=== PATIENT | female | born 1990 | race Caucasian/White ===

== ENCOUNTER → 2022-09-05 08:23 | Outpatient (BNVA) | payer OTHER, SELFPAY | PROVIDERS: Visit Provider Physician Assistant Surgical ==

== ENCOUNTER 2022-10-04 14:56 | Outpatient (AMB) | payer OTHER, SELFPAY ==
--- NOTE | 2022-10-04 15:04 | A.OFFVIS_ITS ---
Intake VS Expanded 10/04/22 15:11 Height 5 ft 4 in Weight 238 lb 12.8 oz BMI 41.0 BP 129/74 Blood Pressure Location Rt brachial Blood Pressure Position Sitting Pulse 80 Pulse Source Pulse Oximeter Temp 98.1 F Temperature Source Temporal Artery Scan Pulse Oximetry 96 Oxygen Delivery Method Room Air Body Fat 103.2 Body Fat Percentage 43.2 Free Fat Mass 135.6 Muscle Mass 128.8 Visceral Mass 11.0 Water Mass 97.4 BMR 1,920 Intake Visit Reasons: (OV) [employer] SWL BMI 41.4 Public Relations Sales Marketing Required: No Allergies Seasonal Allergies Allergy (Mild, Verified 10/04/22 15:09) Sneezing Medication List - Last Reconciled 10/04/22 by YAO Foote levocetirizine (Xyzal) 5 mg PO DAILY HPI HPI Comments History of Present Illness Details Pt is here to start the [facility] Weight Management surgical weight loss program. She heard about our program from her sister. Her goal is to lose weight and achieve a healthy lifestyle. She reports first being concerned about her weight for about 12 years, highest weight to date was 265. Current weight is 238.8 with a BMI of 41. She has tried multiple methods of weight loss including fad diets and diet pills without permanent results. She lives with her , son and sister. 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 She wakes at:?530 am, and goes to bed at?1030 pm. Dinner is at 5 pm. Breakfast: stateless muffin w butter or PB, OJ, kate AM snack: skip or popcorn or chips/salsa Lunch: tuna packet, avocado, tomato, cucumber PM snack: DD bagel w cream cheese, grilled cheese w rye/lin/tomato Dinner: burrito bowl, pizza, restaurant ([facility] [employer] , 99) After dinner: twizzlers, icey pops Other snacks: candy, chocolate Liquids: less than 16 oz water daily, OJ/cran/apple juices 32 oz daily, 32 oz coke/pepsi daily Alcohol/marijuana/tobacco intake: rare etoh, no cannabis, no tobacco Exercise: walking QOD 10-15 min, has gym membership to [facility]. GERD score: 0 TERESA score: 4 ESS score: 3 QOL score: 100 PFS Surgical History Hx of section Hx of wisdom tooth extraction Family History Mother High cholesterol Father Hypertension High cholesterol Sister No problems noted. Sister Hypertension High cholesterol Sister No problems noted. Son No problems noted. Social History Alcohol intake: current Alcohol intake frequency: holidays/special occasions only Patient Tobacco Use Status: Never used Tobacco Review of Systems Const All systems reviewed & are unremarkable except as noted in HPI and below Physical Exam Vital Signs: Last Vital Signs Temp 98.1 F 10/04/22 15:11 Pulse 80 10/04/22 15:11 BP 129/74 10/04/22 15:11 Pulse Ox 96 10/04/22 15:11 Oxygen Delivery Method Room Air 10/04/22 15:11 BMI result Body Mass Index 41.0 Const General: cooperative, healthy appearing and no acute distress Orientation/consciousness: patient oriented x3 HEENT Head: Yes normal to inspection Ears: hearing grossly normal bilaterally General nose exam: Normal external nose present Face and sinus: Yes normal facial exam Eyes General: appearance normal, both eyes and all related structures Resp Effort & Inspection: normal respiratory effort Auscultation: clear to auscultation bilaterally Cardio Rate: regular rate Rhythm: regular rhythm Heart sounds: S1 normal heart sound present and S2 normal heart sound present GI Inspection: Yes normal to inspection, No distended and Yes obesity Palpation (GI): Soft to palpation, nontender and no guarding Auscultation: normal bowel sounds Skin General skin exam: no rashes or lesions noted Neuro General: patient oriented x3 Extrem General: No edema Psych Appearance: grossly normal Mental Status: mental status grossly normal Speech and movement: Normal speech and movement present Affect: normal affect Attitude: cooperative Assessment & Plan Assessment & Plan (1) Morbid obesity: Code(s): E66.01 - Morbid (severe) obesity due to excess calories Plan: This is a?31 yo female who will start our SWL program to prepare for bariatric surgery.? Blood work, h pylori , CXR, ECG, Abd US and UGI have been ordered. She is being scheduled for RD and BH initial consultations. She will start SWL classes and watch the first three videos before her next appointment. ? Adequate sleep of 7-8 hours per night discussed, awakening at 530 am and going to bed around 1030 pm ? You stated you already purchased a body composition scale so be sure to check weight weekly. The best time to do this is first thing in the morning after going to the bathroom. 1. Nutritional counseling: Be sure to careful read the number of scoops per shake Start with 3 Pure Protein shakes ([employer], [employer], [employer]), (1/2 scoop in 8 oz low fat unsweetened almond milk or water) First shake at 630am-830am, Second shake at 1030am-1230pm 1 protein bar ([employer] Perfect bars at [employer], [employer], or [employer]) at 2pm-4pm. Dinner at 5pm (9 forks of protein and 9 forks of salad/vegetables). Meal to include lean meat (beef, fish, pork, turkey, chicken), cooked vegetables or a salad with olive oil and/or fruits (berries, pears, apples, kiwi). Avoid salt, breads, potatoes, rice, pasta, desserts. Another shake with 1/2 scoop in 8 oz unsweetened almond milk at 730pm-930pm. Try to drink 64 oz of water daily and avoid soda and juices. ?2. Each shake would be drunk slowly, like coffee in a period of 2 hours. ?3. Cut each bar in 4 pieces and eat each piece in 30 min ?to make each bar last 2 hours. ?4. I emphasized the importance of measuring accurately the food portion and measure it carefully when serving the food on the plate ?5. The meal portions include 9 full-size forks of meat and 9 full-size forks of salad. You always eat the meat portion but you can replace up to half of the forks of salad/vegetables with rice, potatoes or pasta, or a fruit ?if you like. The less you do it the better weight loss will be. ?6. One full-size fork is what can be scooped on the fork without falling aside and not what can be bit with the fork. Use regular forks like those you find in a typical restaurant. ?7.? Please send me weight measurements as soon as possible and then once a week. Always include your diet and exercise plan. Alternatively come weekly at the office for weight checks and send me the measurements. ?8. Exercise counseling: Begin by watching a stretching for beginners video. Start slowly and begin to stretch your muscles. You should do this before and after each exercise session to prevent injury. Please go to [facility] gym near your home. Ask the manager float or one of the trainers how to use the machines if you are unfamiliar with them. Start elliptical with a resistance of 2. Increase resistance by 1 every 3 min to your most comfortable resistance with a max resistance of 8. Reduce the resistance by 1 every 3 minutes back down to 2 and repeat cycles for 300 calories. Alternatively, start treadmill with a speed of 3.0 and incline of 0, increasing incline by 1 every 3 minutes to the highest comfortable level (max 6 for now) then decrease in the same fashion. Repeat process to a goal of 300 calories. Goal of 2000 calories burned or more weekly. You may also consider use of the stationary bike. The easiest would be to chose the fat-burn or interval training program on the machine and do this until you reach the 300 calorie goal. Alternatively, you can manually adjust the resistance in a similar fashion as mentioned above, (resistance of 2-8 with a goal speed of 12 mph). Tracking calories is essential. 9. Alternatively start walking outside daily, tracking calories with a goal of 300 calories per day, daily. You can download the lianna [employer] which can track your time, distance and calories while walking outside. You press start in the lianna when you start and then stop when you are finished. 10.? It is important to avoid and for at least 18 months postoperatively and it has been discussed at the information session 11. Please get labs, EKG and chest X-Ray within 1 week. 12. Discussed and answered all questions regarding?obtained consent to participate in the [place] [facility]?Registry. 13. Please follow the diet plan exactly, without any change. If you do not like something about the plan or you feel hungry, you need to communicate with me so I can help you revise the plan. You should not change the plan yourself. Text me at [phone] 14. Goal is to lose at least 12 pounds in the first month 15. Goal is to lose 10% of your weight before surgery, which is about 24 lbs. Ultimate weight goal: 214 lbs before surgery Patient is morbidly obese and is not considered stable at this time.?I spent a total of 70 minutes reviewing/updating records, examining the patient and counseling the patient on weight management as detailed above. Orders: Orders Vitamin B12 and Folate Today E66.01 - Morbid (severe) obesity due to excess calories Comprehensive Met. Panel Today E66.01 - Morbid (severe) obesity due to excess calories C Reactive Protein Today E66.01 - Morbid (severe) obesity due to excess calories Ferritin Today E66.01 - Morbid (severe) obesity due to excess calories Hemoglobin A1c Today E66.01 - Morbid (severe) obesity due to excess calories Insulin Today E66.01 - Morbid (severe) obesity due to excess calories IRON PROFILE Today E66.01 - Morbid (severe) obesity due to excess calories Lipid Panel Today E66.01 - Morbid (severe) obesity due to excess calories PTHI Today E66.01 - Morbid (severe) obesity due to excess calories TSH reflex Free T4 Today E66.01 - Morbid (severe) obesity due to excess calories Vitamin A Today E66.01 - Morbid (severe) obesity due to excess calories Vitamin B1 Today E66.01 - Morbid (severe) obesity due to excess calories Vitamin D 25-OH Total Today E66.01 - Morbid (severe) obesity due to excess calories Zinc Today E66.01 - Morbid (severe) obesity due to excess calories ECG 12 lead EKG Today E66.01 - Morbid (severe) obesity due to excess calories FL upper GI w air Today E66.01 - Morbid (severe) obesity due to excess calories Complete Blood Count Auto Diff Today E66.01 - Morbid (severe) obesity due to excess calories H Pylori Breath Test Today E66.01 - Morbid (severe) obesity due to excess calories US abdomen comp w elastography Today E66.01 - Morbid (severe) obesity due to excess calories XR chest 2V Today E66.01 - Morbid (severe) obesity due to excess calories Referrals Behavioral Health Referral E66.01 - Morbid (severe) obesity due to excess calories Nutrition/Dietitian Referral E66.01 - Morbid (severe) obesity due to excess calories Coding Level of Care Code New Pt Level 5 (39907) Diagnoses Morbid obesity E66.01 Time Spent (min) 70
[2022-10-04 15:11] VITALS: BP 129/74; PULSE 80; TEMP 36.7; O2SAT 96; BMI 41.0
== END 2022-10-04 16:54 | disposition home or self-care (01) ==
PROVIDERS: Visit Provider Physician Assistant Surgical
DX: E66.01 Morbid (severe) obesity due to excess calories (principal); Z68.41 Body mass index [BMI] 40.0-44.9, adult
CPT/HCPCS: 99205

== ENCOUNTER → 2022-10-04 14:56 | Outpatient (BNVA) | payer OTHER, SELFPAY | PROVIDERS: Visit Provider Physician Assistant Surgical ==

== ENCOUNTER 2022-10-08 07:38 | Outpatient (REF) | payer OTHER, SELFPAY ==
--- NOTE | ~2022-10-08 | XR_ITS ---
EXAMINATION: XR CHEST CLINICAL INFORMATION: Reason for Exam E66.01 - Morbid (severe) obesity due to excess calories COMPARISON: None TECHNIQUE: 2 views of the chest FINDINGS: Lines and tubes: None. Clear lungs. No pleural effusion. No pneumothorax. Normal cardiomediastinal silhouette. XR/XR chest 2V IMPRESSION: * Clear lungs.
--- NOTE | 2022-10-08 07:47 | ECG_ITS ---
Test Reason : E66.01 Blood Pressure : / mmHG Vent. Rate : 064 BPM Atrial Rate : 064 BPM P-R Int : 116 ms QRS Dur : 086 ms QT Int : 412 ms P-R-T Axes : 044 073 032 degrees QTc Int : 425 ms Normal sinus rhythm Normal ECG No previous ECGs available Referred By: Kevin Parker Electronically Signed By:ARNIE ELISE MD
[2022-10-08 08:07] LABS: MANUAL DIFF FLAG NO
[2022-10-08 08:25] LABS: Basophils Percent Auto 0.4 % (0-2); Eosinophils Absolute Auto 0.4 X10*3/uL (0.0-0.4); Eosinophils Percent Auto 4.5 % (0-4); Hematocrit 42.2 % (37.0-47.0); Hemoglobin 14.3 g/dl (12.0-16.0); Imm Gran Abs Auto 0.04 X10*3/uL (0.00-0.03); Imm Gran Pct Auto 0.5 % (0.0-0.4); Lymphocytes Absolute Auto 2.2 X10*3/uL (1.2-4.9); Lymphocytes Percent Auto 27.1 % (20-40); Mean Corpuscular HGB Conc 33.9 g/dl (31.0-35.0); Mean Corpuscular Hemoglobin 27.6 pg (27.0-33.0); Mean Corpuscular Volume 81.3 fL (80.0-98.0); Mean Platelet Volume 9.9 fL (9.4-12.3); Monocytes Absolute Auto 0.5 X10*3/uL (0.1-1.2); Monocytes Percent Auto 6.6 % (2-11); Neutrophils Percent Auto 60.9 % (45-73); Platelet Count 252 X10*3/uL (160-400); Red Blood Count 5.19 X10*6/uL (4.20-5.50); Red Cell Distribution Width 12.1 % (11.0-16.0); White Blood Count 8.2 X10*3/uL (4.8-10.8)
[2022-10-08 08:32] LABS: Estimated Average Glucose 88 mg/dL; Hemoglobin A1c % 4.7 %
[2022-10-08 09:09] LABS: Alanine Aminotransferase 25 U/L (0-31); Albumin Level 4.8 g/dL (3.5-5.0); Alkaline Phosphatase 99 U/L (39-117); Anion Gap 13 (12-20); Aspartate Amino Transferase 23 U/L (5-31); Bilirubin Total 0.8 mg/dL (0.0-1.0); Blood Urea Nitrogen 17 mg/dL (9-16); C Reactive Protein 0.85 mg/dL (< or = 0.50); Calcium 9.7 mg/dL (8.4-10.2); Carbon Dioxide 24 mmol/L (22-29); Chloride 107 mmol/L (96-108); Cholesterol 173 mg/dL; Estimated Glomerular Filt Rate > 60; Glucose Random 82 mg/dL (60-115); HDL Cholesterol 35 mg/dL; Iron 74 mcg/dL (30-160); LDL Cholesterol Calculated 119 mg/dl; Percent Iron Saturation 22 % (15-50); Potassium 3.7 mmol/L (3.3-5.1); Sodium 140 mmol/L (135-145); Total Iron Binding Capacity 330 mcg/dL (228-428); Total Protein 8.1 g/dL (6.5-8.0); Triglycerides 98 mg/dL; Unsaturated Iron Binding 256 ug/dL
[2022-10-08 09:13] LABS: Ferritin 120 ng/mL (10-122); Insulin 8 uU/mL (2-29); TSH reflex Free T4 1.17 uIU/mL (0.32-4.0); Vitamin D 25-OH Total 18.9 ng/mL (>30)
[2022-10-08 09:28] LABS: Folate 15.1 ng/mL (> or = 4.0); Vitamin B12 256 pg/mL (200-900)
[2022-10-10 18:58] LABS: Calcium (PTHI) 9.7 mg/dL (8.6-10.2); PTHI 63 pg/mL (16-77)
[2022-10-11 23:14] LABS: Zinc 83 mcg/dL (60-130)
[2022-10-12 03:43] LABS: Vitamin A 37 mcg/dL (38-98)
[2022-10-15 12:08] LABS: Vitamin B1 8 nmol/L (8-30)
== END 2022-10-08 07:39 | disposition home or self-care (01) ==
LOC: HO.XRAY 07:38
PROVIDERS: PCP Internal Medicine; Visit Provider Physician Assistant Surgical
DX: E66.01 Morbid (severe) obesity due to excess calories (principal)
CPT/HCPCS: 36415; 71046; 80053; 80061; 82306; 82607; 82728; 82746; 83036; 83525; 83540; 83970; 84425; 84443; 84590; 84630; 85025; 86140; 93005

== ENCOUNTER → 2022-10-08 07:47 | Outpatient (BNV) | payer OTHER, SELFPAY | PROVIDERS: PCP Internal Medicine; Visit Provider Internal Medicine Cardiovascular Disease | DX: E66.01 Morbid (severe) obesity due to excess calories (principal) | CPT/HCPCS: 93010 ==

== ENCOUNTER 2022-10-22 09:49 | Outpatient (AMB) | payer OTHER, SELFPAY ==
[2022-10-22 10:58] VITALS: BMI 39.3
--- NOTE | 2022-10-22 10:58 | MHC.AMNUTRGE ---
Intake VS Expanded 10/22/22 10:58 Height 5 ft 4 in Weight 229 lb BMI 39.3 Intake Visit Reasons: (OV) Initial Nutrition SWL Allergies Seasonal Allergies Allergy (Mild, Verified 10/04/22 15:09) Sneezing HPI Nutrition Presentation Reason for consult elevated BMI Diet Assmnt Details 2 shakes (Pure protein but really dislikes) she is also asking for recommendations for shakes with less additives and preservatives 1 Zone Perfect bar 1 meal - tuna, cucumber, tomato OR salmon and zucchini , beef and tomato . is getting very bored with food. 1 bar Exercise: 3 days per week walking on the treadmill Is interested in starting yoga SWL onllie classes: none Dietary counseling reduction Diagnosis Nutrition problem #1 overweight/obesity As related to (etiology) #1 excess energy intake and physical inactivity As evidenced by (sign/symptom) #1 high BMI Monitoring/Goals Nutrition problem monitoring total energy intake, level of knowledge/skill, total PRO intake, total CHO intake and weight Outcome progress progressing Learning/Education Readiness to learn good Stages of change action Educational materials provided Yes Most Recent Diabetes Results: Cholesterol 173 mg/dL 10/08/22 HDL Cholesterol 35 mg/dL 10/08/22 Triglycerides 98 mg/dL 10/08/22 Creatinine 0.81 mg/dL (0.5-1.4) 10/08/22 Blood Urea Nitrogen 17 mg/dL (9-16) H 10/08/22 Sodium 140 mmol/L (135-145) 10/08/22 Potassium 3.7 mmol/L (3.3-5.1) 10/08/22 Chloride 107 mmol/L (96-108) 10/08/22 Carbon Dioxide 24 mmol/L (22-29) 10/08/22 Calcium 9.7 mg/dL (8.4-10.2) 10/08/22 AST 23 U/L (5-31) 10/08/22 ALT 25 U/L (0-31) 10/08/22 Total Protein 8.1 g/dL (6.5-8.0) H 10/08/22 Albumin 4.8 g/dL (3.5-5.0) 10/08/22 PFSH Surgical History Hx of section Hx of wisdom tooth extraction Family History Mother High cholesterol Father Hypertension High cholesterol Sister No problems noted. Sister Hypertension High cholesterol Sister No problems noted. Son No problems noted. Social History Alcohol intake: current Alcohol intake frequency: holidays/special occasions only Patient Tobacco Use Status: Never used Tobacco Assessment & Plan Assessment & Plan (1) Morbid obesity: Code(s): E66.01 - Morbid (severe) obesity due to excess calories Patient Instructions: Doing well, continue her nutrition and exercise plans. suggested working on increasing exercise frequency. complete online classes and f/u in 1 month Coding Level of Care Code Nutr Indiv Intake (76098) Diagnoses Morbid obesity E66.01 Time Spent (min) 30
== END 2022-10-22 13:50 | disposition home or self-care (01) ==
PROVIDERS: Visit Provider Dietitian, Registered
DX: E66.01 Morbid (severe) obesity due to excess calories (principal)

== ENCOUNTER 2022-10-22 09:49 | Outpatient (AMB) | payer OTHER, SELFPAY ==
--- NOTE | 2022-10-22 10:02 | MHC.WMTHER ---
Intake Intake Visit Reasons: (OV) BH Intake Allergies Seasonal Allergies Allergy (Mild, Verified 10/04/22 15:09) Sneezing PFSH Surgical History Hx of section Hx of wisdom tooth extraction Family History Mother High cholesterol Father Hypertension High cholesterol Sister No problems noted. Sister Hypertension High cholesterol Sister No problems noted. Son No problems noted. Social History Alcohol intake: current Alcohol intake frequency: holidays/special occasions only Patient Tobacco Use Status: Never used Tobacco Behavioral Health Assessment Weight Management Therapy Therapy Notes Details Pt is looking to have weight loss surgery to help improve her health and quality of life. She reported that she was in therapy about 15 years ago for anxiety and depression. Pt stated that she still struggles from depression but does not seek help for that at this time. No history of drugs or alcohol, has always been against it because of her mother. She has no history of any inpatient psychiatric admissions. Pt stated that she was get obsessive with food in high school so that she could be skinny and would restrict. Later in life would binge on food. Presenting Concerns Referral Source provider Reason for referral weight loss surgery evaluation Precipitating Event obesity Living Situation Current Living Situation Relative's/Guardian's Tiny At risk of losing current housing? Yes Satisfied with current living situation? No Comments Pt lives with her sister, her , and her 11 year old son. Food/Weight/Diet Expectations of change weight loss and maintenance History/Relationship with food Pt reported drinking 2-3 sodas per day, fast food, convenient foods, bigger portions, late night eating on snacks before bed such as candy, twizzlers, twix bar, or chips. She reported often not knowing what it feels like to be full and would want to eat more . History/Relationship with weight Pt stated that after having her son 11 years ago, she has struggled with her weight. Prior to, she was very active and ate less. History/Relationship with dieting 15-20lbs with [facility] which she has done on and off 8x's. Binge Eating Do you frequently eat large amounts of food in short periods of time, not feeling physically hungry? No Do you feel out of control when you eat a large amount of food in a short period of time? No Do you eat large amounts of food rapidly and typically alone? Yes Night Eating Do you wake up at least once during the night to eat? No If you wake up in the night, do you find that it is necessary to eat something in order to fall back asleep? No Do you have little or no appetite in the morning and feel very hungry in the evening, often overeating between dinner and when you go to bed? No Social History Family history and relationship Pt reported that she was born and raised by her parents and her three sisters. Pt grew up in [place] a farm. She is the second born but her oldest sister has disabilities and her mother has been an opiate addict for years so she has been more of the mother figure. She is very close to her sisters. Parental/Familial photovoltaic installer obligations 11 year old son Developmental history and status no issues Social support three sisters she talks to daily, , cousin who had weight loss surgery, her sister is having weight loss surgery this month at another hospital. Cultural/Ethnic information Legal Involvement and History Current or historical involvement with the legal system? none Education Highest grade completed Bachelors in Health Science Preferred learning style Auditory, Verbal, Written, Learn by doing and Visual Currently enrolled in educational program? No Interested in further educational program? 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 No Meaningful activities Pt stated that she paints, kayaks, bike rides Financial Situation Describe current financial situation Comfortable Financial assistance? None Service Service? No Mental Health and Addiction Treatment Current/Past substance abuse? No Current/Past addictive behavior concerns? No Medical and Physical Health Summary Physical exam in the last year? Yes Pain Screening Current pain? No Pain in the last few months? No Medications Is the patient compliant with medications? Yes Does the patient have [place] Guardian in place? Not applicable Trauma/Abuse History History of trauma? Yes Questionnaires PHQ-9 Over the last 2 weeks, how often have you been bothered by any of the following problems? 1. Little interest or pleasure in doing things: several days 2. Feeling down, depressed, or hopeless: several days 3. Trouble falling or staying asleep, or sleeping too much: several days 4. Feeling tired or having little energy: several days 5. Poor appetite or overeating: nearly every day 6. Feeling bad about yourself - or that you are a failure or have let yourself or your family down: not at all 7. Trouble concentrating on things, such as reading the newspaper or watching television: several days 8. Moving or speaking so slowly that other people could have noticed. Or the opposite - being so fidgety or restless that you have been moving around a lot more than usual: not at all 9. Thoughts that you would be better off or of hurting yourself in some way: not at all Total score: 8 Source: Developed by Drs. Patrick Arana, Kerline Freed, Mikey De La O and colleagues, with an educational donavon from [employer]. Binge Eating Scale Group 1 A. I don't feel self-conscious about my wt. or body size when I'm with others. B. I feel concerned about how I look to others, but it normally does not make me fell disappointed with myself C. I do get self-conscious about my appearance and wt. which makes me feel disappointed in myself. D. I feel very self-conscious about my wt. and frequently I feel intense shame and disgust for myself. I try to avoid social contacts because of my self-consciousness. Response Group 1: D Group 2 A. I don't have any difficulty eating slowly in the proper manner. B. Although I seem to gobble down foods, I don't end up feeling stuffed because of eating to much. C. At times, I tend to eat quickly and then, I feel uncomfortably full afterwards. D. I have the habit of bolting down my food, without really chewing it. When this happens I usually feel uncomfortably stuffed because I've eaten to much. Response Group 2: B Group 3 A. I feel capable to control my eating urges when I want to. B. I feel like I have failed to control my eating more than the average person. C. I feel utterly helpless when it comes to feeling in control of my eating urges. D. Because I feel so helpless about controlling my eating I have become very desperate about trying to get control. Response Group 3: B Group 4 A. I don't have the habit of eating when I'm bored. B. I sometimes eat when I'm bored, but often I'm able to get busy and get my mind off food. C. I have a regular habit of eating when I'm bored, but occasionally, I can use some other activity to get my mind off eating. D. I have a strong habit of eating when I'm bored. Nothing seems to help me breath the habit. Response Group 4: C Group 5 A. I'm usually physically hungry when I eat something. B. Occasionally, I eat something on impulse even though I really am not hungry. C. I have the regular habit of eating foods, that I might not really enjoy, to satisfy a hungry feeling even though physically, I don't need the food. D. Although I'm not physically hungry, I get a hungry feeling in my mouth that only seems to be satisfied when I eat a food, like sandwich, that fills my mouth. Sometimes, when I eat the food to satisfy my mouth hunger, I then spit the food out so I won't gain weight. Response Group 5: C Group 6 A. I don't feel any guilt or self-hate after I overeat. B. After I overeat, occasionally I feel guilt or self-hate. C. Almost all the time I experience strong guilt or self-hate after I overeat. Response Group 6: B Group 7 A. I don't lose total control of my eating when dieting even after periods when I overeat. B. Sometimes when I eat a forbidden food on a diet, I feel like I blew it and eat even more. C. Frequently, I have the habit of saying to myself, I've blown it now, why not go all the way, when I overeat on a diet. When that happens I eat more. D. I have a regular habit of starting a strict diets for myself but I break the diets by going on an eating binge. My life seems to be either a feast or famine. Response Group 7: C Group 8 A. I rarely eat so much food that I feel uncomfortably stuffed afterwards. B. Usually about once a month, I each such a quantity of food, I end up feeling very stuffed. C. I have regular periods during the month when I eat large amounts of food, either at mealtime or at snacks. D. I eat so much food that I regularly feel quite uncomfortable after eating and sometimes a bit nauseous. Response Group 8: C Group 9 A. My level of calorie intake does not go up very high or go down very low on a regular basis. B. Sometimes after I overeat, I will try to reduce my caloric intake to almost nothing to compensate for the excess calories I've eaten. C. I have a regular habit of overeating during the night. It seems that my routine is not to be hungry in the morning but overeat in the evening. D. In my adult years, I have had week-long periods where I practically starve myself. This follows periods when I overeat. It seems I live a life of either feast or famine. Response Group 9: C Group 10 A. I usually am able to stop eating when I want to. I know when enough is enough. B. Every so often, I experience a compulsion to eat which I can't seem to control. C. Frequently, I experience strong urges to eat which I seem unable to control, but at other times I can control my eating urges. D. I feel incapable of controlling urges to eat. I have a fear of not being able to stop eating voluntarily. Response Group 10: C Group 11 A. I don't have any problem stopping eating when I feel full. B. I usually can stop eating when I feel full but occasionally overeat leaving me feeling uncomfortably stuffed. C. I have a problem stopping eating once I start and usually I feel uncomfortably stuffed after I eat a meal. D. Because I have a problem not being able to stop eating when I want, I sometimes have to induce vomiting to relieve my stuffed feeling. Response Group 11: C Group 12 A. I seem to eat just as much when I'm with others, Family social gatherings as when I'm by myself. B. Sometimes, when I'm with other persons, I don't eat as much as I want to eat because I'm self-conscious about my eating. C. Frequently, I eat only a small amount of food when others are present, because I'm very embarrassed about my eating. D. I feel so ashamed about overeating that I pick times to overeat when I know no one will see me. I feel like a closet eater. Response Group 12: B Group 13 A. I eat three meals a day with only an occasional between meal snack. B. I eat 3 meals a day, but I also normally snack between meals. C. When I am snacking heavily, I get in the habit of skipping regular meals. D. There are regular periods when I seem to be continually eating, with no planned meals. Response Group 13: B Group 14 A. I don't think much about trying to control unwanted eating urges. B. At least some of the time, I feel my thoughts are pre-occupied with trying to control my eating urges. C. I feel that frequently I spend much time thinking about how much I ate or about trying not to eat anymore. D. It seems to me that most of my waking hours are pre-occupied by thoughts about eating or not eating. I feel like I'm constantly struggling not to eat. Response Group 14: C Group 15 A. I don't think about food a great deal. B. I have strong craving for food but they last only for brief periods of time. C. I have days when I can't seem to think about anything else but food. D. Most of my days seem to be pre-occupied with thoughts about food. I feel like I live to eat. Response Group 15: C Group 16 A. I usually know whether or not I'm physically hungry. I take the right portion of food to satisfy me. B. Occasionally, I feel uncertain about knowing whether or not I'm physically hungry. A these times it's hard to know how much food I should take to satisfy me. C. Even though I might know how many calories I should eat, I don't have any idea what is a normal amount of food for me. Response Group 16: B Binge Eating Score: 27 Score less than 17 Minimal Risk Score between 18-26 Moderate Risk Score between 27-46 High Risk Assessment & Plan Assessment & Plan (1) Dysthymia: Code(s): F34.1 - Dysthymic disorder (2) Morbid obesity: Code(s): E66.01 - Morbid (severe) obesity due to excess calories Plan Patient reported long history of complex trauma growing up with a mother who is an addict. She is currently doing well and does not have any serious mental health struggles or symptoms. She will be seen again for support and is cleared for surgery when ready. Coding Level of Care Code Psy Diag Lily (96122) Diagnoses Dysthymia F34.1 Morbid obesity E66.01 Time Spent (min) 45
== END 2022-10-22 10:58 | disposition home or self-care (01) ==
PROVIDERS: Visit Provider Counselor Mental Health
DX: F34.1 Dysthymic disorder (principal); E66.01 Morbid (severe) obesity due to excess calories
CPT/HCPCS: 90791

== ENCOUNTER → 2022-10-22 09:49 | Outpatient (BNVA) | payer OTHER, SELFPAY | PROVIDERS: Visit Provider Counselor Mental Health | DX: E66.01 Morbid (severe) obesity due to excess calories (principal); Z68.39 Body mass index [BMI] 39.0-39.9, adult; Z71.3 Dietary counseling and surveillance | CPT/HCPCS: 97802 ==

== ENCOUNTER 2022-10-29 08:30 | Outpatient (AMB) | payer OTHER, SELFPAY ==
--- NOTE | 2022-10-29 08:36 | MHC.OFFVISWM ---
Intake VS Expanded 10/29/22 08:41 Height 5 ft 4 in Weight 230 lb 12.8 oz BMI 39.6 BP 115/66 Blood Pressure Location Rt brachial Blood Pressure Position Sitting Pulse 72 Pulse Source Pulse Oximeter Temp 98.4 F Temperature Source Temporal Artery Scan Pulse Oximetry 97 Oxygen Delivery Method Room Air Body Fat 97.2 Body Fat Percentage 42.2 Free Fat Mass 133.4 Muscle Mass 126.6 Visceral Mass 10.0 Water Mass 95.6 BMR 1,879 Intake Visit Reasons: (OV) F/U SWL Commercial Real Estate Lender Required: No Allergies Seasonal Allergies Allergy (Mild, Verified 10/29/22 08:40) Sneezing Medication List - Last Reconciled 10/29/22 by YAO Foote cholecalciferol (vitamin D3) 125 mcg PO DAILY 90 days cyanocobalamin (vitamin B-12) 250 mcg PO DAILY 90 days levocetirizine (Xyzal) 5 mg PO DAILY vitamin A palmitate 3,000 mcg PO DAILY 90 days HPI HPI Comments History of Present Illness Details The patient is a pleasant 32 year old female who returns to the clinic for pre-operative surgical weight loss management. They were last seen in the office on 10/04/22, recorded weight at that time was 238.8 pounds, with a BMI of 41. Today's weight is 230.8 pounds and BMI is 39.6. There has been a weight loss of 8 pounds since initiating the surgical weight loss program on 10/04/22 with a total body weight loss of 3.3 %. Pre op work up completed as follows: SWL classes:? 06/23 BH appts: cleared-10/22/22 ? ? RD appts: f/u 11/12/22 Labs: 10/08/22-low A,D,B12:256 H. pylori: 10/29/22 CXR: 10/08/22-nad EK10/08/22-normal ABD U/S: 10/29/22 UGI: 01/04/23 The patient reports things are going ok. Current meal plan includes: 3 Pure Protein shakes, (1/2 scoop in 8 oz low fat unsweetened almond milk or water) First shake at 630am-830am, Second shake at 1030am-1230pm 1 protein bar (Zone Perfect bars at [employer], [facility], or [employer]) at 2pm-4pm. Dinner at 5pm (9 forks of protein and 9 forks of salad/vegetables). Another shake with 1/2 scoop in 8 oz unsweetened almond milk at 730pm-930pm. Drinking 64 oz of water Current exercise plan includes: walking at [employer] treadmill, 350-450 calories 3 nights per week. PFSH Surgical History Hx of section Hx of wisdom tooth extraction Family History Mother High cholesterol Father Hypertension High cholesterol Sister No problems noted. Sister Hypertension High cholesterol Sister No problems noted. Son No problems noted. Social History Alcohol intake: current Alcohol intake frequency: holidays/special occasions only Patient Tobacco Use Status: Never used Tobacco Review of Systems Const All systems reviewed & are unremarkable except as noted in HPI and below Physical Exam Const General: healthy appearing and no acute distress Resp Effort & Inspection: normal respiratory effort Auscultation: clear to auscultation bilaterally Cardio Rate: regular rate Rhythm: regular rhythm GI Auscultation: normal bowel sounds Extrem General: Yes normal to inspection Assessment & Plan Assessment & Plan (1) Obesity (BMI 30-39.9): Code(s): E66.9 - Obesity, unspecified Plan: making good progress reminded of upcoming appts encouraged to increase exercise by one day and to increase incline on treadmill walk outside as an option and track calories rtc 3 weeks Coding Level of Care Code Est Pt Level 3 (39680) Diagnoses Obesity (BMI 30-39.9) E66.9
[2022-10-29 08:41] VITALS: BP 115/66; PULSE 72; TEMP 36.9; O2SAT 97; BMI 39.6
== END 2022-10-29 09:02 | disposition home or self-care (01) ==
PROVIDERS: Visit Provider Physician Assistant Surgical
DX: E66.9 Obesity, unspecified (principal)
CPT/HCPCS: 99213

== ENCOUNTER 2022-10-29 09:15 | Outpatient (REF) | payer OTHER, SELFPAY ==
[2022-11-02 16:43] LABS: H Pylori Breath Test Negative (Negative)
== END 2022-10-29 09:16 | disposition home or self-care (01) ==
LOC: HO.LNP 09:15
PROVIDERS: Visit Provider Physician Assistant Surgical
DX: E66.01 Morbid (severe) obesity due to excess calories (principal)
CPT/HCPCS: 83013

== ENCOUNTER 2022-11-01 08:14 | Outpatient (REF) | payer OTHER, SELFPAY ==
--- NOTE | ~2022-11-01 | US_ITS ---
EXAMINATION: US COMPLETE ABDOMEN WITH LIVER ELASTOGRAPHY CLINICAL INFORMATION: Morbid obesity. COMPARISON: None available. TECHNIQUE: Real-time imaging of the abdominal viscera. Noninvasive ultrasound liver fibrosis assessment is performed using Tonny ElastPQ point quantification shear wave elastography (2D-SWE) with a C5-2 MHz transducer. Multiple elastography samples are obtained. FINDINGS: PANCREAS: Normal. The visualized pancreatic head and body are normal in appearance. The remainder of the pancreas is obscured from visualization by the overlying bowel gas. ABDOMINAL AORTA: The proximal, middle, and distal aortic segments are normal in caliber. INFERIOR VENA CAVA: Visualized portions are normal. LIVER: There is mild hepatomegaly. The liver demonstrates normal contour and mildly increased echogenicity. No focal lesion or intrahepatic biliary duct dilatation. The right lobe measures 17.2 cm in length. The left lobe measures 12.5 cm in length. Portal flow is towards the liver (hepatopetal). Shear wave liver elastography median stiffness is 1.42 m/s (reference: normal median stiffness is 1.3 m/s or less). IQR/median stiffness to assess sampling precision is 0.23 (reference: good quality data set is IQR/median stiffness of 0.15 or less). GALLBLADDER: Normal. The gallbladder is physiologically distended without evidence of stones, sludge, polyps, wall thickening or pericholecystic fluid. COMMON BILE DUCT: Normal in caliber measuring 0.3 cm in diameter. RIGHT KIDNEY: Normal. No hydronephrosis. No renal calculi or focal parenchymal lesions. The kidney measures 12.0 cm in maximum dimension. LEFT KIDNEY: Normal. No hydronephrosis. No renal calculi or focal parenchymal lesions. The kidney measures 11.0 cm in maximum dimension. SPLEEN: Normal. The spleen measures 10.7 cm in maximum dimension. FREE FLUID: None. US/US abdomen comp w elastography IMPRESSION: 1. There is generalized increase in hepatic echotexture, consistent with fatty infiltration or hepatocellular disease. Please correlate clinically. No focal hepatic mass or intrahepatic biliary dilatation is seen. 2. There is mild hepatomegaly. 3. Liver elastography: Although measurements appear to rule out compensated advanced chronic liver disease, there is statistical variability of the sampling which decreases accuracy. REFERENCE: Society of Radiologists in Ultrasound Liver Stiffness Thresholds (2020): LIVER STIFFNESS THRESHOLDS: *Liver Stiffness equal or less than 1.3 m/s: High probability of being normal. *Liver Stiffness less than 1.7 m/s: In the absence of other known clinical signs, rules out compensated advanced chronic liver disease. *Liver Stiffness 1.7-2.1 m/s: Suggestive of compensated advanced chronic liver disease but need further test for confirmation. *Liver Stiffness over 2.1 m/s: Rules in compensated advanced chronic liver disease. *Liver Stiffness over 2.4 m/s: Suggestive of clinically significant portal hypertension. QUALITY OF DATA SET: *IQR/Median value equal or less than 0.15 implies a quality data set. *IQR/Median value over 0.15 implies a poor quality data set. SIGNIFICANT CHANGE FROM PRIOR EXAM: Significant change if liver stiffness measurement is 10% or greater from prior exam. OTHER CONSIDERATIONS: The stage of liver fibrosis may be overestimated in the setting of acute hepatitis, liver inflammation, elevated liver function tests, hepatic vascular congestion, obstructive cholestasis, non-fasting state, and infiltrative diseases such as amyloidosis and lymphoma. In some patients with NAFLD, the liver stiffness thresholds for compensated advanced chronic liver disease may be lower. In causes other than viral hepatitis and NAFLD, liver stiffness thresholds are not well established.
== END 2022-11-01 08:15 | disposition home or self-care (01) ==
LOC: HO.US 08:14
PROVIDERS: PCP Internal Medicine; Visit Provider Physician Assistant Surgical
DX: E66.01 Morbid (severe) obesity due to excess calories (principal)
CPT/HCPCS: 76705; 76981

== ENCOUNTER 2022-11-12 09:00 | Outpatient (AMB) | payer OTHER, SELFPAY ==
--- NOTE | 2022-11-12 09:19 | MHC.AMNUTRGE ---
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 is getting very bored with food. - is triggered by forkfulls. Has trauma history of food insecurity - when she sees she only has a few bites left, becomes very sad. Also has a few other habits now that are a result of her past trauma we talked about today. she works on this with gabriel 1 bar Patient is challenged by social situations in which food is involved, receiving comments from others and not knowing how to respond. CAROLINA king classes: 06/23, scoring very well Dietary counseling reduction Diagnosis Nutrition problem #1 overweight/obesity As related to (etiology) #1 excess energy intake and physical inactivity As evidenced by (sign/symptom) #1 high BMI Monitoring/Goals Nutrition problem monitoring total energy intake, level of knowledge/skill, total PRO intake, total CHO intake and weight Outcome progress progressing Learning/Education Readiness to learn good Stages of change action Educational materials provided Yes Most Recent Diabetes Results: Cholesterol 173 mg/dL 10/08/22 HDL Cholesterol 35 mg/dL 10/08/22 Triglycerides 98 mg/dL 10/08/22 Creatinine 0.81 mg/dL (0.5-1.4) 10/08/22 Blood Urea Nitrogen 17 mg/dL (9-16) H 10/08/22 Sodium 140 mmol/L (135-145) 10/08/22 Potassium 3.7 mmol/L (3.3-5.1) 10/08/22 Chloride 107 mmol/L (96-108) 10/08/22 Carbon Dioxide 24 mmol/L (22-29) 10/08/22 Calcium 9.7 mg/dL (8.4-10.2) 10/08/22 AST 23 U/L (5-31) 10/08/22 ALT 25 U/L (0-31) 10/08/22 Total Protein 8.1 g/dL (6.5-8.0) H 10/08/22 Albumin 4.8 g/dL (3.5-5.0) 10/08/22 [facility] Surgical History Hx of section Hx of wisdom tooth extraction Family History Mother High cholesterol Father Hypertension High cholesterol Sister No problems noted. Sister Hypertension High cholesterol Sister No problems noted. Son No problems noted. Social History Alcohol intake: current Alcohol intake frequency: holidays/special occasions only Patient Tobacco Use Status: Never used Tobacco Assessment & Plan Assessment & Plan (1) Obesity (BMI 30-39.9): Code(s): E66.9 - Obesity, unspecified Patient Instructions: We talked about boundary setting and how to deal with comments from others about her food. Has a trauma history of food insecurity , which we identified is evident in her current barriers. Use food scale - 4-5oz - forkfuls is triggering for her. We talked about re-framing thoughts as well to be more positive and she will talk with gabriel about this more. She will complete online classes and follow-up with me in about a month. Coding Level of Care Code Nutr Indiv Subseq (97080) Diagnoses Obesity (BMI 30-39.9) E66.9 Time Spent (min) 30
== END 2022-11-12 09:44 | disposition home or self-care (01) ==
PROVIDERS: Visit Provider Dietitian, Registered
DX: E66.9 Obesity, unspecified (principal)

== ENCOUNTER → 2022-11-12 09:00 | Outpatient (BNVA) | payer OTHER, SELFPAY | PROVIDERS: Visit Provider Dietitian, Registered | DX: E66.9 Obesity, unspecified (principal); Z71.3 Dietary counseling and surveillance | CPT/HCPCS: 97803 ==

== ENCOUNTER 2022-12-03 08:06 | Outpatient (AMB) | payer OTHER, SELFPAY ==
--- NOTE | 2022-12-03 08:11 | A.OFFVIS_ITS ---
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 They were last seen in the office on 10/29/22, recorded weight at that time was 230.8 pounds, with a BMI of 39.6. Today's weight is 227.4 pounds and BMI is 39. There has been a weight loss of 11.4 pounds since initiating the surgical weight loss program on 10/04/22 with a total body weight loss of 4.77 %. Pre op work up completed as follows: SWL classes:? 06/23 BH appts: cleared-10/22/22 ? ? RD appts: f/u 12/10/22 Labs: 10/08/22-low A,D,B12:256 H. pylori: 10/29/22-neg CXR: 10/08/22-nad EK10/08/22-normal ABD U/S: 10/29/22-fatty liver UGI: 01/04/23 The patient reports she has had some struggles with consistency. She tends to fall apart by saturday. Changed bar to pure protein Current meal plan includes: 3 Pure Protein shakes, (1/2 scoop in 8 o z low fat unsweetened almond milk or water) First shake at 630am-830am, Second shake at 1030am-1230pm 1 protein bar ([employer] bars at [employer], [facility], or [employer]) at 2pm-4pm. Dinner at 5pm (9 forks of protein and 9 forks of salad/vegetables). Another shake with 1/2 scoop in 8 oz unsweetened almond milk at 730pm-930pm. Drinking 64 oz of water Current exercise plan includes: walking outside 2 miles daily, 40-45 minutes. PFSH Surgical History Hx of wisdom tooth extraction Hx of section Family History Mother High cholesterol Father Hypertension High cholesterol Sister No problems noted. Sister Hypertension High cholesterol Sister No problems noted. Son No problems noted. Social History Alcohol intake: current Alcohol intake frequency: holidays/special occasions only Patient Tobacco Use Status: Never used Tobacco Physical Exam Vital Signs: Last Vital Signs Temp 98.7 F 12/03/22 08:15 Pulse 75 12/03/22 08:15 BP 135/86 12/03/22 08:15 Pulse Ox 98 12/03/22 08:15 Oxygen Delivery Method Room Air 12/03/22 08:15 BMI result Body Mass Index 39.0 Const General: healthy appearing and no acute distress Resp Effort & Inspection: normal respiratory effort Auscultation: clear to auscultation bilaterally Cardio Rate: regular rate Rhythm: regular rhythm GI Auscultation: normal bowel sounds Extrem General: Yes normal to inspection Assessment & Plan Assessment & Plan (1) Obesity (BMI 30-39.9): Code(s): E66.9 - Obesity, unspecified Plan: continue meal plan but use: shake 1/2 scoop pure protein shake bar: pure protein meal 8 forks/8 forks shake increase exercise to [place] of 300 hermes per day, track while walking outside, resume a few days at [facility] rtc 3 weeks Coding Level of Care Code Est Pt Level 3 (03242) Diagnoses Obesity (BMI 30-39.9) E66.9
[2022-12-03 08:15] VITALS: BP 135/86; PULSE 75; TEMP 37.1; O2SAT 98; BMI 39.0
== END 2022-12-03 09:10 | disposition home or self-care (01) ==
PROVIDERS: Visit Provider Physician Assistant Surgical
DX: E66.9 Obesity, unspecified (principal)
CPT/HCPCS: 99213

== ENCOUNTER → 2022-12-03 08:06 | Outpatient (BNVA) | payer OTHER, SELFPAY | PROVIDERS: Visit Provider Physician Assistant Surgical ==

== ENCOUNTER 2022-12-10 08:44 | Outpatient (AMB) | payer OTHER, SELFPAY ==
--- NOTE | 2022-12-10 08:59 | MHC.AMNUTRGE ---
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 is getting very bored with food. - is triggered by forkfulls. Has trauma history of food insecurity - when she sees she only has a few bites left, becomes very sad. Also has a few other habits now that are a result of her past trauma we talked about today. she works on this with gabriel 1 bar she reports feeling very bored with food, leads her to make other choices. Patient is challenged by social situations in which food is involved, receiving comments from others and not knowing how to respond. Reports this is getting easier, but spoke about her mother CAROLINA king classes: completed, scored well Dietary counseling reduction Diagnosis Nutrition problem #1 overweight/obesity As related to (etiology) #1 excess energy intake and physical inactivity As evidenced by (sign/symptom) #1 high BMI Monitoring/Goals Nutrition problem monitoring total energy intake, level of knowledge/skill, total PRO intake, total CHO intake and weight Outcome progress progressing Learning/Education Readiness to learn good Stages of change action Educational materials provided Yes Most Recent Diabetes Results: No Data to Display [facility] Surgical History Hx of wisdom tooth extraction Hx of section Family History Mother High cholesterol Father Hypertension High cholesterol Sister No problems noted. Sister Hypertension High cholesterol Sister No problems noted. Son No problems noted. Social History Alcohol intake: current Alcohol intake frequency: holidays/special occasions only Patient Tobacco Use Status: Never used Tobacco Assessment & Plan Assessment & Plan (1) Obesity (BMI 30-39.9): Code(s): E66.9 - Obesity, unspecified Patient Instructions: Pt is cleared from a nutrition standpoint for bariatric surgery but she would like to continue follow ups for support and guidance. struggles a lot with emotional eating and she is doing great identifying and working through barriers. Coding Level of Care Code Nutr Indiv Subseq (87742) Diagnoses Obesity (BMI 30-39.9) E66.9 Time Spent (min) 30
== END 2022-12-10 09:52 | disposition home or self-care (01) ==
PROVIDERS: Visit Provider Dietitian, Registered
DX: E66.9 Obesity, unspecified (principal)

== ENCOUNTER 2022-12-10 08:44 | Outpatient (AMB) | payer OTHER, SELFPAY ==
--- NOTE | 2022-12-10 10:09 | MHC.WMTHER ---
Intake Intake Visit Reasons: VIDEO BH F/U Allergies Seasonal Allergies Allergy (Mild, Verified 12/31/22 08:34) Sneezing PFSH Surgical History Hx of wisdom tooth extraction Hx of section Family History Mother High cholesterol Father Hypertension High cholesterol Sister No problems noted. Sister Hypertension High cholesterol Sister No problems noted. Son No problems noted. Social History Alcohol intake: current Alcohol intake frequency: holidays/special occasions only Patient Tobacco Use Status: Never used Tobacco Behavioral Health Assessment Weight Management Therapy Therapy Notes Details Tayler discussed some difficulties she is having around boundaries at work and with her mother. Comments are often made at lunch by some of her coworkers on the topic of what she is eating (or not eating). She stated that this has resulted in anxiety leading up to lunch and also feeling emotional after lunch. Pt is looking to have weight loss surgery to help improve her health and quality of life. She reported that she was in therapy about 15 years ago for anxiety and depression. Pt stated that she still struggles from depression but does not seek help for that at this time. No history of drugs or alcohol, has always been against it because of her mother. She has no history of any inpatient psychiatric admissions. Pt stated that she was get obsessive with food in high school so that she could be skinny and would restrict. Later in life would binge on food. Presenting Concerns Referral Source provider Reason for referral weight loss surgery evaluation Precipitating Event obesity Living Situation Current Living Situation Relative's/Guardian's Tiny At risk of losing current housing? Yes Satisfied with current living situation? No Comments Pt lives with her sister, her , and her 11 year old son. Food/Weight/Diet Expectations of change weight loss and maintenance History/Relationship with food Pt reported drinking 2-3 sodas per day, fast food, convenient foods, bigger portions, late night eating on snacks before bed such as candy, twizzlers, twix bar, or chips. She reported often not knowing what it feels like to be full and would want to eat more . History/Relationship with weight Pt stated that after having her son 11 years ago, she has struggled with her weight. Prior to, she was very active and ate less. History/Relationship with dieting 15-20lbs with [employer] which she has done on and off 8x's. Binge Eating Do you frequently eat large amounts of food in short periods of time, not feeling physically hungry? No Do you feel out of control when you eat a large amount of food in a short period of time? No Do you eat large amounts of food rapidly and typically alone? Yes Night Eating Do you wake up at least once during the night to eat? No If you wake up in the night, do you find that it is necessary to eat something in order to fall back asleep? No Do you have little or no appetite in the morning and feel very hungry in the evening, often overeating between dinner and when you go to bed? No Social History Family history and relationship Pt reported that she was born and raised by her parents and her three sisters. Pt grew up in [place] on a farm. She is the second born but her oldest sister has disabilities and her mother has been an opiate addict for years so she has been more of the mother figure. She is very close to her sisters. 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 Cultural/Ethnic information Legal Involvement and History Current or historical involvement with the legal system? none Education Highest grade completed Bachelors in Health Science Preferred learning style Auditory, Verbal, Written, Learn by doing and Visual Currently enrolled in educational program? No Interested in further educational program? 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 No Meaningful activities Pt stated that she paints, kayaks, bike rides Financial Situation Describe current financial situation Comfortable Financial assistance? None Service Service? No Mental Health and Addiction Treatment Current/Past substance abuse? No Current/Past addictive behavior concerns? No Medical and Physical Health Summary Physical exam in the last year? Yes Pain Screening Current pain? No Pain in the last few months? No Medications Is the patient compliant with medications? Yes Does the patient have [place] Guardian in place? Not applicable Trauma/Abuse History History of trauma? Yes Assessment & Plan Assessment & Plan (1) Dysthymia: Code(s): F34.1 - Dysthymic disorder (2) Morbid obesity: Code(s): E66.01 - Morbid (severe) obesity due to excess calories Plan Patient reported long history of complex trauma growing up with a mother who is an addict. She is currently doing well and does not have any serious mental health struggles or symptoms. She will be seen again for support and is cleared for surgery when ready. Telehealth Telehealth Location of provider rendering services: practice address Location of patient: other Patient Identification confirmed using: Name, : Yes Telehealth method: video Patient verbally consented to treatment: Yes Patient verbally consented to billing insurance company: Yes Patient informed of any privacy concerns related to visit: Yes Minutes spent on Phone/Video with Pt.: 45 Coding Level of Care Code Psytx 45 mins (08625) Diagnoses Dysthymia F34.1 Morbid obesity E66.01 Time Spent (min) 45
== END 2022-12-10 10:08 | disposition home or self-care (01) ==
PROVIDERS: Visit Provider Counselor Mental Health
DX: F34.1 Dysthymic disorder (principal); E66.01 Morbid (severe) obesity due to excess calories
CPT/HCPCS: 90834

== ENCOUNTER → 2022-12-10 08:44 | Outpatient (BNVA) | payer OTHER, SELFPAY | PROVIDERS: Visit Provider Counselor Mental Health | DX: E66.9 Obesity, unspecified (principal); Z71.3 Dietary counseling and surveillance | CPT/HCPCS: 97803 ==

== ENCOUNTER 2022-12-31 08:29 | Outpatient (AMB) | payer OTHER, SELFPAY ==
--- NOTE | 2022-12-31 08:31 | A.OFFVIS_ITS ---
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 They were last seen in the office on 12/03/22, recorded weight at that time was 227.4 pounds, with a BMI of 39. Today's weight is 224.4 pounds and BMI is 38.5. There has been a weight loss of 14.4 pounds since initiating the surgical weight loss program on 10/04/22 with a total body weight loss of 6 %. Pre op work up completed as follows: SWL classes:? 06/23 BH appts: cleared-10/22/22 ? ? RD appts: cleared- 12/10/22 Labs: 10/08/22-low A,D,B12:256 H. pylori: 10/29/22-neg CXR: 10/08/22-nad EK10/08/22-normal ABD U/S: 10/29/22-fatty liver UGI: 01/04/23 The patient reports she has developed a fairly non pruritic rash to her trunk and upper extremities, sparing her lower extremities. This occurred approximately 5 days ago after a particularly stressful conversation with 1 of her family members. The only other change in her overall medications was dis continuance of Singulair. Current meal plan includes: 3 Pure Protein shakes, (1/2 scoop in 8 o z low fat unsweetened almond milk or water) First shake at 630am-830am, Second shake at 1030am-1230pm, 1 protein bar (Pure Protein bars) at 2pm -4pm. Dinner at 5pm (8 forks of protein and 8 forks of salad/vegetables). Another shake with 1/2 scoop in 8 oz unsweetened almond milk at 730pm-930pm. Drinking 64 oz of water Current exercise plan includes: none in the past week walking outside 2 miles daily, 40-45 minutes. outdoor biking. PFSH Surgical History Hx of wisdom tooth extraction Hx of section Family History Mother High cholesterol Father Hypertension High cholesterol Sister No problems noted. Sister Hypertension High cholesterol Sister No problems noted. Son No problems noted. Social History Alcohol intake: current Alcohol intake frequency: holidays/special occasions only Patient Tobacco Use Status: Never used Tobacco Review of Systems Const All systems reviewed & are unremarkable except as noted in HPI and below Physical Exam Const General: healthy appearing and no acute distress Resp Effort & Inspection: normal respiratory effort Auscultation: clear to auscultation bilaterally Cardio Rate: regular rate Rhythm: regular rhythm GI Auscultation: normal bowel sounds Skin Other: scattered macrular rash without purulence or vesicle to trunk, BUE Extrem General: Yes normal to inspection Assessment & Plan Assessment & Plan (1) Obesity (BMI 30-39.9): Code(s): E66.9 - Obesity, unspecified Plan: change meal plan to 1/2 scoop, 1/4 scoop, bar, meal, 1/2 scoop Starts yoga and increase exercise rtc 3 weeks (2) Rash: Code(s): R21 - Rash and other nonspecific skin eruption Plan: ? idiopathic urticaria Re-start singular 10 mg daily, add pepcid 20 mg daily contact pcp for f/u Coding Level of Care Code Est Pt Level 4 (11844) Diagnoses Obesity (BMI 30-39.9) E66.9 Rash R21 Time Spent (min) 40
[2022-12-31 08:44] VITALS: BP 126/64; PULSE 79; TEMP 37.1; O2SAT 96; BMI 38.5
== END 2022-12-31 09:19 | disposition home or self-care (01) ==
PROVIDERS: Visit Provider Physician Assistant Surgical
DX: E66.9 Obesity, unspecified (principal); R21 Rash and other nonspecific skin eruption
CPT/HCPCS: 99214

== ENCOUNTER → 2022-12-31 08:29 | Outpatient (BNVA) | payer OTHER, SELFPAY | PROVIDERS: Visit Provider Physician Assistant Surgical ==

== ENCOUNTER 2023-01-07 09:49 | Outpatient (REF) | payer OTHER, SELFPAY ==
--- NOTE | ~2023-01-07 | FL_ITS ---
EXAMINATION: FL UPPER GI WITH AIR CLINICAL INFORMATION: Morbid/severe obesity due to excess calories. COMPARISON: None available. TECHNIQUE: Routine upper GI air-contrast study was performed. FINDINGS: Following oral administration of thick barium and effervescent granules there is normal propagation of bolus from the oral cavity through the pharynx, esophagus into stomach without any evidence of obstruction, narrowing or stricture. On placing patient supine and prone lying the course, caliber and peristalsis of the stomach, duodenal bulb and the sweep are normal. There is a moderate gastroesophageal reflux without hiatal hernia. The mucosal pattern of the stomach, duodenal bulb and the sweep is normal. There is a small duodenal diverticulum in the 2nd segment of the duodenum. FLUOROSCOPY TIME: 1 minute and 27 seconds. DOSE AREA PRODUCT: 85 uGy-m2 (microgray-meter squared). FL/FL upper GI w air IMPRESSION: 1. Moderate gastroesophageal reflux without hiatal hernia. 2. Small duodenal diverticulum in the 2nd segment of duodenum.
== END 2023-01-07 09:50 | disposition home or self-care (01) ==
LOC: HO.XRAY 09:49
PROVIDERS: Visit Provider Physician Assistant Surgical
DX: E66.01 Morbid (severe) obesity due to excess calories (principal)
CPT/HCPCS: 74246

== ENCOUNTER → 2023-01-07 09:51 | Outpatient (BNV) | payer OTHER, SELFPAY | PROVIDERS: Visit Provider Radiology Diagnostic Radiology | DX: K21.9 Gastro-esophageal reflux disease without esophagitis (principal) | CPT/HCPCS: 74246 ==

== ENCOUNTER 2025-03-08 13:49 | Emergency (ER) | payer OTHER, SELFPAY ==
[2025-03-08 13:56] VITALS: BP 127/84; PULSE 98; RESP 16; TEMP 36.9; O2SAT 99; BMI 31.8
--- NOTE | 2025-03-08 13:58 | ED.GENADULT ---
HPI - General Adult General Chief complaint: General Medical Stated complaint: Extreme Hemroid Pain Time Seen by Provider: 03/08/25 15:21 Source: patient Mode of arrival: ambulatory Limitations: no limitations History of Present Illness ED Provider: Dr. Clay Lee HPI narrative: 34-year-old female who presents emergency department for evaluation of rectal pain. The patient states she has a an external hemorrhoid which she has bled on and off for many years. Patient states for the last week she has been having severe rectal pain. She states that sitting makes the pain worse. She denies constipation. She has used preparation H cream on the rectuml but has not used any per rectum. she denies fever, chills, abdominal pain. Related Data Home Medications ?Medication ?Instructions ?Recorded ?Confirmed levocetirizine 5 mg tablet (Xyzal) 5 mg PO DAILY 09/05/22 12/31/22 Previous Rx's ?Medication ?Instructions ?Recorded cholecalciferol (vitamin D3) 125 125 mcg PO DAILY 90 days #90 tabs 10/08/22 mcg (5,000 unit) tablet vitamin A palmitate 3,000 mcg 3,000 mcg PO DAILY 90 days #90 caps 10/12/22 (10,000 unit) capsule sennosides 8.6 mg tablet (senna) 17.2 mg (2 x 8.6 mg) PO BEDTIME 12/10/22 PRN constipation #60 tabs cyanocobalamin (vitamin B-12) 250 250 mcg PO DAILY 90 days #90 tabs 01/07/23 mcg tablet hydrocortisone 2.5 % topical cream 1 appl ND BID PRN hemorrhoids 2 03/08/25 with perineal applicator weeks #30 grams (Proctozone-HC) Allergies Allergy/AdvReac Type Severity Reaction Status Date / Time Seasonal Allergies Allergy Mild Sneezing Verified 03/08/25 13:57 PMFSH Past Medical History Surgical History Hx of wisdom tooth extraction Hx of section Family History Family History Mother High cholesterol Father Hypertension High cholesterol Sister No problems noted. Sister Hypertension High cholesterol Sister No problems noted. Son No problems noted. Social History Social History (Reviewed 12/31/22 @ 08:34 by TIFFANIE Hernandes Alcohol intake: current Alcohol intake frequency: holidays/special occasions only Patient Tobacco Use Status: Never used Tobacco Advance Directives: No Advance Directives Information Provided: Yes Physical Exam ED Vital Signs: Vital Signs - 24 hr 03/08/25 13:56 03/08/25 16:20 Temperature 98.4 F 98.4 F Pulse Rate 98 98 Respiratory Rate 16 16 Blood Pressure 127/84 127/84 Pulse Oximetry 99 99 Oxygen Delivery Method Room Air Room Air BMI result Body Mass Index 31.8 Vital signs were normal Exam: General: Awake, alert in no distress Abdomen: soft, non-tender, nondistended, normal bowel sounds rectal: No external hemorrhoids, no fissures noted, digital exam was extremely painful, and I did not palpate any masses but I do believe she has palpable internal hemorrhoids which were tender to palpation Course Course Course Narrative: RMEE: 34-year-old female presents to ED for hemorrhoid pain rectal bleeding for about a week. Patient denies abdominal pain nausea vomiting. Medical Decision Making Medical Decision Making MDM Narrative: 34-year-old female who presents emergency department for evaluation of rectal pain x1 week. rectal exam revealed no external hemorrhoids, digital exam was very painful, she did have tender internal hemorrhoids, no anal fissures were noted. Differential diagnosis: Includes but is not limited to thrombosed external hemorrhoids, internal hemorrhoids, anal fissures Course: patient's vitals examination was consistent with tender inflamed internal hemorrhoids. I did discuss this with the patient. The patient was prescribed Proctosol 2.5% cream, she was advised to apply 1 applicator per rectum twice a day and after each bowel movement. She was also advised to take the following [id number]-[id number] medications: Preparation H suppositories twice a day and after each bowel movement; Colace 100 mg twice a day, Metamucil 1 tsp dissolved of water daily, ibuprofen 400 mg q.6 hours PRN and Tylenol 1000 mg q.6 hours PRN. She was given printed and verbal instructions and discharged home. Differential Diagnosis Differential Diagnoses: The differential diagnosis associated with the presentation includes ( See above) Admission/Observation Consideration of admission/observation: Escalation of care including admission/observation considered ( no) Lab Data 03/08/25 14:13 03/08/25 14:13 Labs: Lab Results 03/08/25 Range/Units 14:13 WBC 8.4 (4.8-10.8) X10*3/uL RBC 5.01 (4.20-5.50) X10*6/uL Hgb 14.2 (12.0-16.0) g/dl Hct 43.1 (37.0-47.0) % MCV 86.0 (80.0-98.0) fL MCH 28.3 (27.0-33.0) pg MCHC 32.9 (31.0-35.0) g/dl RDW 11.9 (11.0-16.0) % Plt Count 206 (160-400) X10*3/uL MPV 10.6 (9.4-12.3) fL Immature Gran % (Auto) 0.2 (0.0-0.4) % Neut % (Auto) 45.7 (45-73) % Lymph % (Auto) 39.9 (20-40) % [place] % (Auto) 5.3 (2-11) % Eos % (Auto) 8.3 H (0-4) % Baso % (Auto) 0.6 (0-2) % Lymph # (Auto) 3.4 (1.2-4.9) X10*3/uL [place] # (Auto) 0.5 (0.1-1.2) X10*3/uL Eos # (Auto) 0.7 H (0.0-0.4) X10*3/uL Baso # (Auto) 0.1 (0.0-0.2) X10*3/uL Abs Immat Gran (auto) 0.02 (0.00-0.03) X10*3/uL Absolute Neuts (auto) 3.9 (2.0-8.3) x10*3/uL Absolute Nucleated RBC 0.000 (0.0-0.012) X10*3/uL Nucleated RBC % (auto) 0.0 (0.0-0.2) /100WBC PT 12.3 (11.2-13.5) SEC INR 1.0 (0.9-1.1) APTT 32.1 (26.7-34.1) SEC Sodium 143 (135-145) mmol/L Potassium 4.0 (3.3-5.1) mmol/L Chloride 109 H (96-108) mmol/L Carbon Dioxide 26 (22-29) mmol/L Anion Gap 12 (12-20) BUN 11 (9-16) mg/dL Creatinine 0.73 (0.5-1.4) mg/dL Estim Creat Clear Calc 113.7 Estimated GFR > 60 Random Glucose 84 (60-115) mg/dL Calcium 9.3 (8.4-10.2) mg/dL Total Bilirubin 0.4 (0.0-1.0) mg/dL AST 19 (5-31) U/L ALT 18 (0-31) U/L Alkaline Phosphatase 70 (39-117) U/L Total Protein 7.2 (6.5-8.0) g/dL Albumin 4.8 (3.5-5.0) g/dL Discharge Plan Discharge Clinical Impression: Acute hemorrhoid, Rectal pain Patient Disposition: Home, Self-Care Additional Instructions: Your exam is consistent with a an inflamed internal hemorrhoid just inside the anus. Apply Proctozone HC 2.5% cream with the applicator into your rectum twice a day for 2 weeks. This cream includes a higher dose of hydrocortisone which is an anti-inflammatory medicine and should help reduce the swelling and inflammation in the hemorrhoid. Use preparation H suppositories twice a day and after each bowel movement. Take Colace stool softener 100 mg twice a day for 2 weeks. Take Metamucil 1 tsp dissolved in water daily to help you move your bowels. Increase the amount of fluid that you drink to stay hydrated and to help soften your bowel movements. Either soak in the bath tub for 15-20 minutes 3 to 4 times a day or sit on a heating pad on low 3 to 4 times a day to help with your pain. Take ibuprofen 200 mg pills, 2 pills every 6 hours as needed for pain. Take Tylenol (acetaminophen) 500 mg pills, 2 pills every 6 hours as needed for pain. Follow-up with your doctor in 2 days. Please return to the emergency department if your symptoms get worse or if you develop any symptoms that are concerning to you. I sent your prescriptions to the [facility] on [facility] in [place]. Prescriptions: New hydrocortisone [Proctozone-HC] 2.5 % cream with perineal applicator 1 appl ND BID PRN (Reason: hemorrhoids) 14 Days Qty: 30 0RF No Action cholecalciferol (vitamin D3) 125 mcg (5,000 unit) tablet 125 mcg PO DAILY 90 Days Qty: 90 1RF vitamin A palmitate 3,000 mcg (10,000 unit) capsule 3,000 mcg PO DAILY 90 Days Qty: 90 0RF sennosides [senna] 8.6 mg tablet 17.2 mg PO BEDTIME PRN (Reason: constipation) Qty: 60 0RF cyanocobalamin (vitamin B-12) 250 mcg tablet 250 mcg PO DAILY 90 Days Qty: 90 0RF levocetirizine [Xyzal] 5 mg tablet 5 mg PO DAILY Interventions: ED Discharge Assessment Last Done: 03/08/25 16:20 Discharge Date/Time: 03/08/25 16:21 Print Language: [place]
[2025-03-08 14:30] LABS: MANUAL DIFF FLAG NO
[2025-03-08 14:34] LABS: Hematocrit 43.1 % (37.0-47.0); Hemoglobin 14.2 g/dl (12.0-16.0); Imm Gran Abs Auto 0.02 X10*3/uL (0.00-0.03); Imm Gran Pct Auto 0.2 % (0.0-0.4); Lymphocytes Absolute Auto 3.4 X10*3/uL (1.2-4.9); Mean Corpuscular HGB Conc 32.9 g/dl (31.0-35.0); Mean Corpuscular Hemoglobin 28.3 pg (27.0-33.0); Mean Corpuscular Volume 86.0 fL (80.0-98.0); NRBC Abs Auto 0.000 X10*3/uL (0.0-0.012); NRBC Pct Auto 0.0 /100WBC (0.0-0.2); Platelet Count 206 X10*3/uL (160-400); Red Blood Count 5.01 X10*6/uL (4.20-5.50); White Blood Count 8.4 X10*3/uL (4.8-10.8)
[2025-03-08 14:39] LABS: INTERNATIONAL NORM RATIO 1.0 (0.9-1.1); Prothrombin Time 12.3 SEC (11.2-13.5)
[2025-03-08 14:42] LABS: Partial Thromboplastin Time 32.1 SEC (26.7-34.1)
[2025-03-08 15:04] LABS: Alanine Aminotransferase 18 U/L (0-31); Albumin Level 4.8 g/dL (3.5-5.0); Alkaline Phosphatase 70 U/L (39-117); Anion Gap 12 (12-20); Aspartate Amino Transferase 19 U/L (5-31); Blood Urea Nitrogen 11 mg/dL (9-16); Calcium 9.3 mg/dL (8.4-10.2); Carbon Dioxide 26 mmol/L (22-29); Chloride 109 mmol/L (96-108); Creatinine Clr Calc Pharmacy 113.7; Estimated Glomerular Filt Rate > 60; Potassium 4.0 mmol/L (3.3-5.1); Sodium 143 mmol/L (135-145); Total Protein 7.2 g/dL (6.5-8.0)
[2025-03-08 16:20] VITALS: BP 127/84; PULSE 98; RESP 16; TEMP 36.9; O2SAT 99
--- OUTSIDE RECORDS SUMMARY | 2025-03-08 18:06 | XMS_ITS | Encounter Summary ---
Author Organization [facility] Address [address] [place] [phone] Phone Care Team Providers Care Guest Services Representative Name Role Phone Maite Mark Unavailable [phone] Holland Will MD Primary Care Provider [phone] Reason for Visit * Reason Comments Medication Refill Encounter Details Date Type Department Care Team (Late st Contact Info) Description 02/08/2025 Refill [facility] [address] [place], [place] [id number] Holland Will MD [address] [place] [address] [email or web address] Medication Refill Social History Tobacco Use Types Packs/Day Years Used Date Smoking Tobacco: Never Passive Smoke Exposure: Past Smokeless Tobacco: Never Alcohol Use Standard Drinks/Week Comments Yes 0 (1 standard drink = 0.6 oz pur e alcohol) rare Child or Family Care Answer Date Record ed Do you have problems with on e of the following making it difficult for you to work, study, or receive health care? No 12/21/2024 Education Answer Date Recorded Are you interested in help w ith more adult education (for example, completing high school, GED, job training, learning the [place] language, technical skills, or developing parenting skills)? No 12/21/2024 Are you concerned about learning? Not on file 12/21/2024 No 12/21/2024 Yes 12/21/2024 Food Answer Date Recorded Within the past 6 months we worried whether our food would run out before we got money to buy more. Never True 12/21/2024 Within the past 6 months the food we bought just didn't last and we didn't have enough money to get more. Never True Residential Stability Answer Date Recor ded What is your housing situation today? I have ghassan wang 12/21/2024 How many times have you move d in the past 12 months? Zero (I did not move) 12/21/2024 Paying for Meds Answer Date Recorded Do you have trouble paying for medicines? No 12/21/2024 Paying Utility Bills Answer Date Record ed Do you have trouble paying your heating or elect ricity bill? No 12/21/2024 Transportation Answer Date Recorded Has the lack of transportati on kept you from medical appointments or from getting medications? No 12/21/2024 Unemployment Answer Date Recorded Are you currently unemployed or working on a part-time or temporary basis, and looking for work? No 12/21/2024 Digital Access Answer Date Recorded No 12/21/2024 Yes 12/21/2024 Do you have reliable internet access at home? Ye s 12/21/2024 Do you have a device (e.g., phone, tablet, computer) with a working camera? Yes 12/21/2024 Intimate Partner Violence Answer Date R ecorded Are you denied basic needs s uch as food, clothing, or medical care? No 02/12/2025 In the past 12 months have y ou been in a relationship with a person who hurts, threatens, or tries to control you? No 02/12/2025 Are you denied basic needs s uch as food, clothing, or medical care? No 02/12/2025 In the past 12 months have y ou been in a relationship with a person who hurts, threatens, or tries to control you? No 02/12/2025 Comments No Sex and Gender Information Value Date Recorded Sex Assigned at Female 08/24/2018 12:17 PM EDT Legal Sex Female 4:30 PM EST Gender Identity Female 08/24/2018 12:17 PM EDT Sexual Orientation Straight 03/08/2025 12 :38 PM EST documented as of this encounter Plan of Treatment Upcoming Encounters Date Type Department Care Team (Late st Contact Info) Description 03/09/2025 3:50 PM EST Telemedicine [facility] Support [address] [place] [address] Heidy Sol, VANESSA, MSN [address] [phone] 06/28/2025 8:30 AM EDT Office Visit [facility] [address] [place] [phone] Holland Will MD [address] [place] [phone] 06/28/2025 2:30 PM EDT Office Visit [facility] [address] [place] [phone] Laura Callahan PA-C [address] [place] [phone] [email or web address] documented as of this encounter Visit Diagnoses Diagnosis Class 3 obesity documented in this encounter Additional Health Concerns Assessment Noted Time PHQ-9 Depression Total Score: 5 12/22/19 25 7:59 AM EDT PHQ-2 Depression Total Score: 2 12/22/19 25 7:59 AM EDT documented as of this encounter Care Teams Guest Services Representative Relationship Specialty Start Date End Date Holland Will MD [address] [place] [phone] PCP - General Internal Medicine 08/14/22 Maite Mark PA [address] [place] [phone] 02/11/21 documented as of this encounter Additional Source Comments The information contained in this document represents components of the legal health record. It is not the complete legal health record.[facility]
--- OUTSIDE RECORDS SUMMARY | 2025-03-08 18:06 | XMS_ITS | Clinical Summary ---
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 Active albuterol 90 mcg/actuation inhaler INHALE 2 PUFFS EVERY 4 TO 6 HOURS NEEDED 02/22/20 22 Active ondansetron (ZOFRAN-ODT) 4 MG disintegrating tabletIndications: Nausea Take 1 tablet (4 mg total) by mouth every 12 (twelve) hours as needed for nausea. 20 tablet 08/25/19 25 Active propranoloL (INDERAL) 10 MG immediate release tabletIndications: Anxiety with limited-symptom attacks,Palpitatio ns TAKE 1 TABLET BY MOUTH THREE TIMES A DAY 270 tablet 3 09/29/19 25 Active Additional Information Patient taking differently:10 mg Oral 3 times daily,3 times a day as needed., Reported on 12/21/2024 tirzepatide, weight loss, (ZEPBOUND) 7.5 mg/0.5 mL subcutaneous penIndications:Cla ss 3 obesity Inject 0.5 mL (7.5 mg total) under the skin once a week. 6 mL 03/02/20 25 Active tirzepatide, weight loss, (ZEPBOUND) 10 mg/0.5 mL subcutaneous penIndications:Cla ss 3 obesity Inject 0.5 mL (10 mg total) under the skin once a week. 2 mL 12/22/19 25 025 Discontin ued(Reord er) tirzepatide, weight loss, (ZEPBOUND) 10 mg/0.5 mL subcutaneous penIndications:Cla ss 3 obesity Inject 0.5 mL (10 mg total) under the skin once a week. 2 mL 02/09/20 25 025 Discontin ued(Reord er) Active Problems Problem Noted Date Diagnosed Date Routine general medical exam ination at a [facility] care [facility] 12/21/2024 Assessment & Plan (12/21/2024 8:55 AM EDT): Overall she is doing very well. Exam negative for pathology. Will continue the Zepbound but patient will start to phase it out by taking it every other week. Will follow-up in 6 months irrespective of whether she is still taking the Zepbound and at that time we can check weight and go over natural ways of weight maintenance/weight loss. At that point we can also order the ultrasound of the abdomen looking for fatty liver for example gallstones and AAA concern. Swelling, limb 06/15/2024 Assessment & Plan (06/29/2024 5:20 PM EDT): Hi this is more calf pain and it is limb swelling at this point. I would like the patient to see physical therapy at [facility] that would and determine if they can find a cause and also some exercises that would help with the swelling. Assessment & Plan (06/15/2024 7:04 PM EDT): Left calf swelling since Saturday, will have the patient go for a duplex ultrasound to rule out DVT. This could be done tomorrow or the Saturday as it is low probability. Palpitations 12/20/2023 Assessment & Plan (06/15/2024 7:03 PM EDT): Since the propranolol is working well at 10 mg we can continue it 3 times daily as needed as we have been prescribing it and there is no orthostatic side effects with it. Will continue to monitor every 6 months. Assessment & Plan (02/17/2024 6:04 PM EST): Palpitations in the setting of anxiety, beta-blockade could help possibly with the symptoms without the need for an SSRI. Trial 10 mg propranolol 3 times daily as needed occasions. If she uses it regularly we could switch to extended release propranolol. Will follow-up on the propranolol prescribed him about 2 months. Assessment & Plan (12/20/2023 5:12 PM EDT): Palpitations could be heart racing secondary to anxiety and component of deconditioning. To better understand we will obtain an EKG and please see results above. Will also obtain a Holter monitor and for lab work with TSH free T4 reflex. Will see if she is hyperthyroid. Once we have these results we can advise treatment. Hematochezia 05/07/2023 Assessment & Plan (05/07/2023 2:08 PM EST): Concerning would be hematochezia whether hemorrhoid or polyp or neoplastic. Obtain FIT, check CBC and refer to [facility]. She should see [facility] irrespective of the FIT test. Will order further imaging depending on lab work including CBC, LFT and FIT. Rash 01/03/2023 Assessment & Plan (01/03/2023 2:31 PM EDT): Non itchy rash over trunk and arms- she is otherwise fine and not in distress. 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 I asked her to let us know in 7 days how she is doing. Warning sing reviewed and to see ER care for any oral s/s or wheezing Mild intermittent asthma without complication Assessment & Plan (05/09/2022 3:30 PM EST): Spoke to her about tachyphylaxis and if she uses the albuterol inhaler more than 3 times per week consider making appointment to receive glucocorticoid inhaler. She will continue seeing [facility] [place] in [place] for weekly allergy injections which she is receiving. Resolved Problems Problem Noted Date Diagnosed Date Resolved Date Class 3 obesity 06/29/2024 12/21/2024 Assessment & Plan (06/29/2024 5:19 PM EDT): Advised on weight watchers protocol and we will start patient on GLP-1 agonist specifically tirzepatide. In 3 months we will then follow-up after the to his appetite is at 7.5 mg. The patient does have stage III obesity, coupled with a diet for example weight watchers oriented patient would have success. Emotional eating is part of the issue and she will need a platform such as weight watchers which she has done before coupled with a GLP-1 agonist that will suppress her appetite. With the weight loss perhaps also hip and leg pain will dissipate. Class 2 obesity due to exces s calories without serious comorbidity in adult 05/09/2022 Assessment & Plan (05/07/2023 2:05 PM EST): I counseled the patient on severely reducing high fructose corn syrup in her diet. Will check LFTs and if LFTs are elevated will get a fasting ultrasound right upper quadrant. Counseled patient on high-fiber low fructose diet. Assessment & Plan (05/09/2022 3:32 PM EST): She was not in person needs to be weighed but the BMI is certainly above 30. Talk to her about doing weight watchers for now until her physical which will be in about 3 months. Then at that appointment we can talk about GLP-1 agonist, patient looking towards bariatric surgery, had tried phentermine which was causing her palpitations understandably. I talked to her about weight watchers is a good platform to continue with at least writing the weekly waist down and using the principles of weight watchers for foods. Then to control appetite we can look at the GLP-1 agonists which are currently in high demand and short supply. Encounters Date Type Department Care Team Description 03/03/2025 Telephone [facility] [address] [place] [address] Richie Ramos Medication Prior Authorization (Zepbound) 02/12/2025 2:29 PM EST - 02/12/2025 5:05 PM EST Emergency [facility] [address] [place] [address] Discharge Disposition: Home or Self Care 02/08/2025 Refill [facility] [address] [place] [address] Holland Will MD Medication Refill 12/21/2024 8:59 AM EDT - 12/21/2024 11:59 PM EDT Hospital Encounter [facility] [address] [place] [address] Holland Will MD Discharge Disposition: Home or Self Care 12/21/2024 8:00 AM EDT Office Visit [facility] [address] [place] [address] Holland Will MD Routine general medical examination at a health care facility (Primary Dx); Class 3 obesity from Last 3 Months Immunizations Immunization Administration Dates Next Due COVID-19 (Pre-01/07) Moderna Vaccine, mRNA, PF 03/16/2021,04/13/2020,03/16/2020 Hepatitis B, unspecified formulation 10/27/1996, 10/22/1995,09/18/1995 INFLUENZA, SPLIT VIRUS, TRIVALENT PF 12/18/2024, 12/19/2023 Influenza Quadrivalent MDCK Preservative Free IM 12/25/2019,12/25/2019,12/29/2018 Influenza Quadrivalent Prese rvative Free IM 12/20/2022,12/21/2021,01/10/2021,2017,01/11/2015 Influenza Quadrivalent w/ Preservative IM 12/28/2015 MMR 09/18/1995,01/15/1992 Tdap 07/10/2021,09/05/2011 Family History Medical History Relation Comments Hypertension Father Hyperthyroidism Father Heart attack Maternal Aunt Pulmonary embolism Maternal Cousin Hypertension Maternal Grandfather Hyperthyroidism Maternal Grandfather Aneurysm Maternal Grandmother AAA Basal cell carcinoma Maternal Grandmother Face a nd Jaw Hypertension Maternal Grandmother Hyperthyroidism Maternal Grandmother Hypertension Paternal Grandfather Hyperthyroidism Paternal Grandfather Throat cancer Paternal Grandfather Diabetes type II Paternal Grandmother Hypertension Paternal Grandmother Hyperthyroidism Paternal Grandmother Relation Status Comments Father Maternal Aunt Maternal Cousin Maternal Grandfather Maternal Grandmother Paternal Grandfather Paternal Grandmother Social History Tobacco Use Types Packs/Day Years Used Date Smoking Tobacco: Never Passive Smoke Exposure: Past Smokeless Tobacco: Never Tobacco Cessation:Counseling Given: Not Answered Alcohol Use Standard Drinks/Week Comments Yes 0 [...] high school, GED, job training, learning the Malay language, technical skills, or developing parenting skills)? [...] your housing situation today? I have ghassan sing 12/21/2024 How many times have you move [...] Orientation Straight 03/08/2025 12 :38 PM EST Last Filed Vital Signs Vital Sign Reading Time Taken Comments Blood Pressure 122/78 02/12/2025 4:43 PM EST Pulse 70 02/12/2025 4:43 PM EST Temperature 36.5 C (97.7 F) 02/12/2025 4:43 PM EST Respiratory Rate 16 02/12/2025 4:43 PM EST Oxygen Saturation 100% 02/12/2025 4:43 PM EST Inhaled Oxygen Concentration - - Weight 85.7 kg (189 lb) 02/12/2025 2:28 PM EST Height 162.6 cm (5' 4 ) 02/12/2025 2:28 PM EST Body Mass Index 32.44 02/12/2025 2:28 PM EST Plan of Treatment Upcoming Encounters Date Type Department Care Team (Late st Contact Info) Description 03/09/2025 3:50 PM EST Telemedicine [facility] Support [address] [place] [address] Heidy Sol, VANESSA, MSN [address] [phone] [email or web address] 06/28/2025 8:30 AM EDT Office Visit [facility] [address] [place] [address] Holland Will MD [address] [place], [place] [id number] 06/28/2025 2:30 PM EDT Office Visit [facility] [address] [place] [address] Laura Callahan PA-C [address] [address] [email or web address] Health Maintenance Due Date Last Done Comments PNEUMOCOCCAL VACCINES (0-49 years) (1 of 2 - PCV) 2009 COVID-19 VACCINE ( - 2024- season) 2024 03/16/2021, 04/13/2020, 03/16/2020 DEPRESSION SCREENING 12/21/2025 12/21/2024, 12/22/19 PAP SMEAR 03/04/2027 03/04/2024, 02/15, 03/31/2019 Adult Td,Tdap Booster 07/11/2031 07/10/2021, 012 INFLUENZA VACCINE Completed 12/18/2024, , 12/20/2022, Additional history exists SMOKING STATUS SCREENING (Once After 26 Yrs) Completed 12/21/2024 HEPATITIS C SCREENING Completed 02/12/2025 , 02/12/2025, 05/07/2023 HIV ONE-TIME SCREENING (18-65 YEARS) Completed 02/12/2025 HEPATITIS A VACCINES Aged Out No long er eligible based on patient's age to complete this topic HIB VACCINES Aged Out No longer eligi ble based on patient's age to complete this topic MENINGOCOCCAL VACCINES (ACWY) Aged Out No longer eligible based on patient's age to complete this topic MENINGOCOCCAL VACCINES (B) Aged Out N o longer eligible based on patient's age to complete this topic Medical Devices Not on file Procedures Procedure Name Priority Date/Time Associated Diagnosis Comments T-SPOT .TB STAT 02/12/2025 4:42 PM EST HCG, SERUM QUALITATIVE STAT 02/12/2025 4:42 PM EST HEPATITIS B SURFACE ANTIBODY STAT 02/12/2025 4:42 PM EST LFTS (HEPATIC PANEL) STAT 02/12/2025 4:42 PM EST BASIC METABOLIC PANEL (BMP) STAT 02/12/2025 4:42 PM EST HEPATITIS C ANTIBODY, QUALITATIVE STAT 02/12/2025 4:42 PM EST HEPATITIS B SURFACE ANTIGEN STAT 02/12/2025 4:42 PM EST CBC AND DIFFERENTIAL STAT 02/12/2025 4:41 PM EST CBC AND DIFFERENTIAL STAT 02/12/2025 4:41 PM EST HIV-1/2 ANTIGEN/ANTIBODY STAT 02/12/2025 4:41 PM EST LIPID PANEL Routine 12/21/2024 8:56 AM EDT Routine general medical examination at a [facility] care facility CBC Routine 12/21/2024 8:56 AM EDT Routine general medical examination at a [facility] care facility BASIC METABOLIC PANEL (BMP) Routine 12/21/2024 8:56 AM EDT Routine general medical examination at a [facility] care facility PAP TEST Routine 03/04/2024 12:00 AM EST from Last 3 Months or Most Recently Relevant to Health Maintenance Results * Human Chorionic Gonadotropin (HCG), Qualitative, Blood (02/12/2025 4:42 PM EST) hCG Qualitative Negative Negative 5:18 PM EST [facility] Blood (Blood) Venipuncture / Unknown 02/12/2025 4:42 PM EST 02/12/2025 4:53 PM EST us Theron Herbert PA-C LAB BLOOD BKR ORDERABLES Libra l Result [facility] [address] [place], [place] [id number] * T-SPOT??.TB (02/12/2025 4:42 PM EST) [facility] T-Spot.TB Negative Negative 02/14/2025 5:17 PM EST [facility] (BEAKER) Comment: A negative test result does not exclude the possibility of exposure to or infection with Mycobacterium tuberculosis (M. tuberculosis). Patients with recent exposure to TB infected individuals exhibiting a negative T-SPOT.TB result should be considered for retesting within 6 weeks or if other relevant clinical symptoms indicate. Results from T-SPOT.TB testing must be used in conjunction with each individual's epidemiological history, current medical status, and results of other diagnostic evaluations. The T-SPOT.TB test is qualitative and results are reported as positive, borderline, or negative, given that the test controls perform as expected. In line with the Centers for Disease Control and Prevention's 2010 recommendation to report quantitative measurements alongside the qualitative result, the laboratory provides spot counts for informational purposes only. The T-SPOT.TB test should not be interpreted as a quantitative test. Panel A Spot Count Corrected For Neg Control 0 02/14/2025 5:17 PM EST [facility] (BEAK[facility]) Panel B Spot Count Corrected For Neg Control 1 02/14/2025 5:17 PM EST [facility] (BEAK[facility]) Negative Control Passed 02/15/20 5:17 PM EST [facility] (BEAK[facility]) Positive Control Passed 02/15/20 5:17 PM EST [facility] (BEAKER) Comment: For additional information, please refer to http://education.[employer]id.Algolux/faq/PKS119 (This link is being provided for informational/ educational purposes only.) Blood (Blood) Venipuncture / Unknown 02/12/2025 4:42 PM EST 02/12/2025 4:53 PM EST Narrative [facility] (BEAK[facility]) - 02/14/2025 5:17 PM EST Performing Organization Information: Site ID: [email or web address] Name: [email or web address] [facility] Address: [address] [place] [address] Director: Epifanio Monroe MD PhD us Theron Herbert PA-C LAB BLOOD BKR ORDERABLES Libra l Result Performing Organization Address [facility]/State/ZIP Co de Phone Number [facility]AGHAVENDRA BENITEZ (BEAKER) [address] [place] [address], [facility] * Hepatic Panel (LFTs) (02/12/2025 4:42 PM EST) AST 17 <33 U/L 02/12/2025 5:27 PM EST [facility] ALT 15 <34 U/L 02/12/2025 5:27 PM [facility] Alkaline Phosphatase 81 40 - 130 U/L 02/12/2025 5:27 PM [facility] Bilirubin, Total 0.4 0.0 - 1.2 mg/dL 02/12/2025 5:27 PM [facility] Bilirubin, Direct 0.2 0.0 - 0.3 mg/dL 02/12/2025 5:27 PM [facility] Total Protein 7.9 6.4 - 8.3 g/dL 02/12/2025 5:27 PM [facility] Albumin 5.0 3.5 - 5.2 g/dL 02/12/2025 5:27 PM [facility] Globulin 2.9 1.9 - 4.1 g/dL 02/12/2025 5:27 PM [facility] Blood (Blood) Venipuncture / Unknown 02/12/2025 4:42 PM EST 02/12/2025 4:53 PM EST us Theron Herbert PA-C LAB BLOOD BKR ORDERABLES Libra l Result [address] [address] * Hepatitis C Antibody (02/12/2025 4:42 PM EST) Hepatitis C Antibody Non-Reacti ve Non-Reacti ve 02/12/2025 5:37 PM EST [facility] Blood (Blood) Venipuncture / Unknown 02/12/2025 4:42 PM EST 02/12/2025 4:53 PM EST [facility] - 02/12/2025 5:37 PM EST Test performed by Mata electrochemiluminescent immunoassay (ECLIA). Theron SAMAYOA-C LAB BLOOD BKR ORDERABLES Libra l Result Performing Organization Address [facility]/ZIP Co de Phone Number [address] [address] * Hepatitis B Surface Antibody (02/12/2025 4:42 PM EST) Hepatitis B Surface Antibody Reactive Reactive 02/12/2025 5:38 PM EST [facility] Comment:Individual is consid ered immune to HBV infection. Hepatitis B Surface Antibody, Quant 77.10 mIU/mL 02/12/2025 5:38 PM EST [facility] Blood (Blood) Venipuncture / Unknown 02/12/2025 4:42 PM EST 02/12/2025 4:53 PM EST [facility] - 02/12/2025 5:38 PM EST Test performed by Mata electrochemiluminescent immunoassay (ECLIA). Theron Herbert PA-C LAB BLOOD BKR ORDERABLES Libra l Result Performing Organization Address [facility]/ZIP Co de Phone Number [address] [address] * Hepatitis B Surface Antigen (02/12/2025 4:42 PM EST) Hepatitis B Surface Antigen Non-Reacti ve 02/12/2025 5:37 PM EST [facility] Blood (Blood) Venipuncture / Unknown 02/12/2025 4:42 PM EST 02/12/2025 4:53 PM EST [facility] - 02/12/2025 5:37 PM EST Test performed by Mata electrochemiluminescent immunoassay (ECLIA). Theron Herbert PA-C LAB BLOOD BKR ORDERABLES Libra l Result [address] [address] * Basic Metabolic Panel (BMP) (02/12/2025 4:42 PM EST) Only the most recent of2 resultswithin the time period is included. Sodium 138 136 - 145 mmol/L 02/12/2025 5:27 PM [facility] Potassium 4.0 3.4 - 5.1 mmol/L 02/12/2025 5:27 PM [facility] Chloride 103 98 - 107 mmol/L 02/12/2025 5:27 PM [facility] CO2 25 20 - 31 mmol/L 02/12/2025 5:27 PM [facility] Anion Gap 10 3 - 17 mmol/L 02/12/2025 5:27 PM [facility] BUN 17 6 - 23 mg/dL 02/12/2025 5:27 PM [facility] Creatinine 0.80 0.50 - 1.00 mg/dL 02/12/2025 5:27 PM [facility] eGFR 99 >59 mL/min/1.7 3m2 02/12/2025 5:27 PM [facility] Comment:Estimated glomerular filtration rate calculated using the CKD-EPI refit equation. Glucose 90 70 - 99 mg/dL 02/12/2025 5:27 PM [facility] Calcium 9.7 8.5 - 10.5 mg/dL 02/12/2025 5:27 PM [facility] Blood (Blood) Venipuncture / Unknown 02/12/2025 4:42 PM EST 02/12/2025 4:53 PM EST Theron Herbert PA-C LAB BLOOD BKR ORDERABLES Libra l Result Performing Organization Address City/[facility]/ZIP Co de Phone Number [address] [address] * (ABNORMAL) CBC and Differential (02/12/2025 4:41 PM EST) WBC 8.54 4.00 - 11.00 K/uL 02/12/2025 4:57 PM [facility] RBC 4.93 4.00 - 5.20 M/uL 02/12/2025 4:57 PM [facility] Hemoglobin 14.0 12.0 - 16.0 g/dL 02/12/2025 4:57 PM [facility] Hematocrit 42.6 36.0 - 46.0 % 02/12/2025 4:57 PM [facility] MCV 86.4 80.0 - 100.0 fL 02/12/2025 4:57 PM [facility] MCH 28.4 27.0 - 31.0 pg 02/12/2025 4:57 PM [facility] MCHC 32.9 32.0 - 36.0 g/dL 02/12/2025 4:57 PM [facility] MPV 10.6 8.4 - 12.0 fL 02/12/2025 4:57 PM [facility] RDW-CV 12.1 11.5 - 14.5 % 02/12/2025 4:57 PM [facility] PLT 239 150 - 450 K/uL 02/12/2025 4:57 PM [facility] Neutrophils 52.6 % 02/12/2025 4:57 PM [facility] Lymphocytes 32.9 % 02/12/2025 4:57 PM [facility] Monocytes 6.0 % 02/12/2025 4:57 PM [facility] Eosinophils 7.5 % 02/12/2025 4:57 PM [facility] Basophils 0.5 % 02/12/2025 4:57 PM [facility] Imm Grans 0.5 % 02/12/2025 4:57 PM [facility] NRBC 0.0 <=0.0 /100 WBCs 02/12/2025 4:57 PM [facility] Absolute Neutrophils 4.50 1.92 - 7.60 K/uL 02/12/2025 4:57 PM [facility] Absolute Lymphocytes 2.81 0.72 - 4.10 K/uL 02/12/2025 4:57 PM [facility] Absolute Monocytes 0.51 0.16 - 1.10 K/uL 02/12/2025 4:57 PM [facility] Absolute Eosinophils 0.64(H) 0.00 - 0.50 K/uL 02/12/2025 4:57 PM [facility] Absolute Basophils 0.04 0.00 - 0.15 K/uL 02/12/2025 4:57 PM [facility] Absolute Imm Grans 0.04 0.00 - 0.09 K/uL 02/12/2025 4:57 PM [facility] Absolute NRBC 0.00 <=0.00 K cells/uL 02/12/2025 4:57 PM [facility] Absolute Neutrophils 4.50 1.92 - 7.60 K/uL 02/12/2025 4:57 PM [facility] Comment:Automated cell count . Manual ANC may differ if performed. Diff Type Auto 02/12/2025 4:57 PM [facility] Blood (Blood) Venipuncture / Unknown 02/12/2025 4:41 PM EST 02/12/2025 4:53 PM EST us Theron Herbert PA-C LAB BLOOD BKR ORDERABLES Libra vega Result [address] [address] * HIV-1/2 Antigen/Antibody Screen (02/12/2025 4:41 PM EST) [facility] HIV 1/2 Antibody/Antigen Non-React stephon Non-React stephon 02/12/2025 5:43 PM [facility] Comment:A non-reactive or ne gative result does not rule out HIV infection, especially in the setting of acute or early infection. Patient should have HIV RNA testing performed and repeat HIV testing in 4-8 weeks, based on patient's clinical and epidemiologic exposure history. Blood (Blood) Venipuncture / Unknown 02/12/2025 4:41 PM EST 02/12/2025 4:53 PM EST Narrative [facility] - 02/12/2025 5:43 PM EST Test performed by 4th generation Mata electrochemiluminescent immunoassay (ECLIA), which detects HIV-1 p24 antigen and antibodies to HIV-1/HIV-2. Antiretroviral drugs taken for treatment or prophylaxis may limit the ability of diagnostic tests to detect HIV infection. us Theron Herbert PA-C LAB BLOOD BKR ORDERABLES Libra vega Result Performing Organization Address City/[facility]/ZIP Co de Phone Number [address] [address] * CBC (12/21/2024 8:56 AM EDT) WBC 6.25 4.00 - 11.00 K/uL [facility] RBC 4.81 4.00 - 5.20 M/uL [facility] HGB 13.6 12.0 - 16.0 g/dL [facility] HCT 41.5 36.0 - 46.0 % [facility] PLT 202 150 - 450 K/uL [facility] MCV 86.3 80.0 - 100.0 fL [facility] MCH 28.3 27.0 - 31.0 pg [facility] MCHC 32.8 32.0 - 36.0 g/dL [facility] RDW 12.1 11.5 - 14.5 % [facility] MPV 11.4 8.4 - 12.0 fL [facility] NRBC 0.00 0.00 /100 WBCs [facility] ABSOLUTE NRBC 0.00 0.00 K/uL [facility] Blood 12/21/2024 8:56 AM EDT 12/21/2024 8:59 AM EDT us Holland Will MD LAB BLOOD BKR ORDERABLES Final R esult Performing Organization Address [facility]/ZIP Co de Phone Number [address] [address] * Lipid panel (12/21/2024 8:56 AM EDT) HDL 38 mg/dL [facility] Comment: Interpretation <40 mg/dL: Low HDL cholesterol (major risk factor for CHD) Greater than or equal to 60 mg/dL: High HDL cholesterol ( negative risk factor for CHD) HDL - cholesterol is affected by a number of factors, e.g. smoking, excerise, hormones, sex and age. CHOLESTEROL 130 0 - 240 mg/dL [facility] TRIGLYCERIDES 76 30 - 160 mg/dL [facility] LDL 77 50 - 129 mg/dL [facility] Comment: LDL levels in terms of risk for coronary heart disease: <100 mg/dL: Optimal 100-129 mg/dL: Near or above optimal 130-159 mg/dL: Borderline high 160-189 mg/dL: High >190 mg/dL: Very High CARDIAC RISK RATIO 3.4 3.3 - 4.4 C [facility] Blood 12/21/2024 8:56 AM EDT 12/21/2024 8:59 AM EDT us Holland Will MD LAB BLOOD BKR ORDERABLES Final R esult Performing Organization Address City/State/[facility] Co de Phone Number [address] [address] * Pap Test (03/04/2024 12:00 AM EST) [place] [address] Take Up Operator: Igor Walter MD [employer]ICER Cytology Report FINAL DIAGNOSIS A. PAP SMEAR (THIN PREP) CE: SPECIMEN ADEQUACY: Satisfactory for evaluation; transformation zone present. INTERPRETATION: NEGATIVE FOR INTRAEPITHELIAL LESION OR MALIGNANCY. This specimen was analyzed by the automated ThinPrep Imaging System ([employer].) and manually rescreened by a nailing machine operator automatic and/or pathologist. Electronically Signed Out By: ROLAND Trevino(ASCP) The Pap test is a screening test primarily for squamous cancers and precursors and has associated false-negative and false-positive results. New technologies such as liquid-based preparations may decrease but will not eliminate all false-negative results. Regular sampling and follow-up of unexplained clinical signs and symptoms are recommended to minimize false negative results. PROCEDURES/ADDENDA HPV Testing (Requested) Ordered Date: 03/05/2024 A. PAP SMEAR (THIN PREP) CE: High-risk HPV Panel w/ extended genotyping NEG HPV 16-NEG HPV 18-NEG HPV 45-NEG HPV 33/58-NEG HPV 31-NEG HPV 56/59/66-NEG HPV 51-NEG HPV 52-NEG HPV 35/39/68-NEG Performed by real-time polymerase chain reaction (PCR) at [facility], [address] [place] [address] using the FDA-approved [employer] Onclarity9 HPV Assay with extended genotyping. Uses of the assay in scenarios other than those approved by the FDA should be considered off-label use. The accuracy and precision of this test for all other off-label specimen sources has been verified in the Cytopathology Laboratory of the [facility] and has not been cleared or approved by the U.S. Food and Drug Administration. Clinical correlation is advised. The assay assesses the E6/E7 DNA target and utilizes human beta globin as an internal control. Cytology and HPV testing are screening assays and should not be used as the sole means of detecting cancer. False-positives and false-negatives can occur. CLINICAL HISTORY Date of Last Menstrual Period: 02-15-2024 Other Clinical Conditions: Screening Pap SPECIMEN SOURCE A: PAP SMEAR (THIN PREP) CE Patient Name: GWEN JONES : 1990 (Age: 33) Sex: F Institution: [facility] Location: [facility] Date of Collection: 03/04/2024 Date of Reported: 03/10/2024 13:18 Results to: Enriqueta Rosario MD [facility] Final Diagnosis A. PAP SMEAR (THIN PREP) CE: SPECIMEN ADEQUACY: Satisfactory for evaluation; transformation zone present. INTERPRETATION: NEGATIVE FOR INTRAEPITHELIAL LESION OR MALIGNANCY. This specimen was analyzed by the automated ThinPrep Imaging System ([employer].) and manually rescreened by a nailing machine operator automatic and/or pathologist. [facility] Results\Inte rpretation A. PAP SMEAR (THIN PREP) CE: High-risk HPV Panel w/ extended genotyping NEG HPV 16-NEG HPV 18-NEG HPV 45-NEG HPV 33/58-NEG HPV 31-NEG HPV 56/59/66-NEG HPV 51-NEG HPV 52-NEG HPV 35/39/68-NEG Performed by real-time polymerase chain reaction (PCR) at [facility], [address] [place] [address] using the FDA-approved [employer] Onclarity HPV Assay with extended genotyping. Uses of the assay in scenarios other than those approved by the FDA should be considered off-label use. The accuracy and precision of this test for all other off-label specimen sources has been verified in the Cytopathology Laboratory of the [facility] and has not been cleared or approved by the U.S. Food and Drug Administration. Clinical correlation is advised. The assay assesses the E6/E7 DNA target and utilizes human beta globin as an internal control. Cytology and HPV testing are screening assays and should not be used as the sole means of detecting cancer. False-positives and false-negatives can occur. [facility] Conversion Type (Conversion Source) 03/04/2024 03/05/2024 10:13 AM EST us Enriqueta Rosario MD CYTOLOGY ORDERABLES Edited Res ult - Final [address] [address] from Last 3 Months or Most Recently Relevant to Health Maintenance Insurance [facility] [place] [id number] [employer] [employer] [employer] [facility] [employer] [facility] [employer] [facility] [employer] [employer] [employer] [employer] [employer] [employer] [facility] [employer] [employer] [employer] [employer] [employer] [facility] [employer] [facility] [employer] [facility] [employer] [facility] [employer] [facility] Care Teams Furnace Firer Relationship Specialty Start Date End Date Holland Will MD [address] [place] [address] PCP - General Internal Medicine 08/14/22 Maite Mark PA [address] [place] [phone] 02/11/21 Additional Source Comments The information contained in this document represents components of the legal health record. It is not the complete legal health record.[facility]
--- OUTSIDE RECORDS SUMMARY | 2025-03-08 18:06 | XMS_ITS | Encounter Summary ---
Author Organization [facility] Address [address] [place] [address] Phone Care Team Providers Care International Guest Coordinator Name Role Phone Maite Mark Unavailable [phone] Holland Will MD Primary Care Provider [phone] Encounter Details Date Type Department Care Team (Latest Contact Info) Description 05/20/2023 Transcribe Orders [facility] Phleb Christina 10 [facility] [address]nd [place] [address] Kerline Partida NP [address] [place] [address] Nausea (Primary Dx); Rectal bleeding Social History Tobacco Use Types Packs/Day Years Used Date Smoking Tobacco: Never Passive Smoke Exposure: Past Smokeless Tobacco: Never Alcohol Use Standard Drinks/Week Comments Yes 0 (1 standard drink = 0.6 oz pur e alcohol) once a month Child or Family Care Answer Date Record ed Do you have problems with on e of the following making it difficult for you to work, study, or receive health care? No 05/09/2022 Education Answer Date Recorded Are you interested in help w ith more adult education (for example, completing high school, GED, job training, learning the Persian language, technical skills, or developing parenting skills)? No 05/09/2022 Are you concerned about learning? Not on file 05/09/2022 No 05/09/2022 Yes 05/09/2022 Food Answer Date Recorded Within the past 6 months we worried whether our food would run out before we got money to buy more. Never True 05/09/2022 Within the past 6 months the food we bought just didn't last and we didn't have enough money to get more. Never True Residential Stability Answer Date Recor ded What is your housing situation today? I have ghassna wang 05/09/2022 How many times have you move d in the past 12 months? Zero (I did not move) 05/09/2022 Paying for Meds Answer Date Recorded Do you have trouble paying for medicines? No 05/09/2022 Paying Utility Bills Answer Date Record ed Do you have trouble paying your heating or elect ricity bill? No 05/09/2022 Transportation Answer Date Recorded Has the lack of transportati on kept you from medical appointments or from getting medications? No 05/09/2022 Unemployment Answer Date Recorded Are you currently unemployed or working on a part-time or temporary basis, and looking for work? No 05/09/2022 Digital Access Answer Date Recorded No 08/12/2022 No 08/12/2022 Reliable internet access at home? Not on file 08/12/2022 Device with a working camera? Not on file Intimate Partner Violence Answer Date R ecorded Are you denied basic needs s uch as food, clothing, or medical care? No 05/25/2022 In the past 12 months have y ou been in a relationship with a person who hurts, threatens, or tries to control you? No 05/25/2022 Are you denied basic needs s uch as food, clothing, or medical care? No 05/25/2022 In the past 12 months have y ou been in a relationship with a person who hurts, threatens, or tries to control you? No 05/25/2022 Comments No Sex and Gender Information Value Date Recorded Sex Assigned at Female 08/24/2018 12:17 PM EDT Legal Sex Female 4:30 PM EST Gender Identity Female 08/24/2018 12:17 PM EDT Sexual Orientation Straight 03/08/2025 12 :38 PM EST documented as of this encounter Plan of Treatment Upcoming Encounters Date Type Department Care Team (Late st Contact Info) Description 03/09/2025 3:50 PM EST Telemedicine [facility] Support [address] [place] [address], [place] [address] Heidy Sol, CAFE ATTENDANT, MSN [address] [place] [phone] [email or web address] 06/28/2025 8:30 AM EDT Office Visit [facility] Primary Care [facility] [address] [place] [address] Holland Will MD [address] [place] [address] [email or web address] 06/28/2025 2:30 PM EDT Office Visit [facility] Gastroenterology Clinic [address] [place] [address] [phone] Laura Callahan PA-C [address] [place] [address] [phone] [email or web address] documented as of this encounter Results * Iron and iron binding capacity (05/20/2023 9:16 AM EST) [facility] IRON 139 30 - 160 ug/dL [facility] IRON BINDING CAPACITY 365 228 - 428 ug/dL [facility] TRANSFERRIN SATURAT. 38 15 - 50 % [facility] Blood 05/20/2023 9:16 AM EST 05/20/2023 9:21 AM EST Kerline Partida BRAILLE DUPLICATING MACHINE OPERATOR LAB BLOOD BKR ORDERABLES Final Result [facility] [address] [place], [place] [id number] * CBC (05/20/2023 9:16 AM EST) WBC 6.61 4.00 - 11.00 K/uL [facility] RBC 5.02 3.72 - 5.30 M/uL [facility] HGB 13.7 10.6 - 15.5 g/dL [facility] HCT 42.5 32.0 - 45.0 % [facility] PLT 215 140 - 430 K/uL [facility] MCV 84.7 78.0 - 97.0 fL [facility] MCH 27.3 25.0 - 33.0 pg [facility] MCHC 32.2 32.0 - 36.0 g/dL [facility] RDW 12.6 11.0 - 16.0 % [facility] MPV 10.4 8.4 - 12.8 [facility] Blood 05/20/2023 9:16 AM EST 05/20/2023 9:21 AM EST Kerline Partida NP LAB BLOOD BKR ORDERABLES Final Result Performing Organization Address City/[facility]/ZIP Co de Phone Number [address] [address] * Immunoglobulin A (05/20/2023 9:16 AM EST) IgA 244 70 - 400 mg/dL [facility] Blood 05/20/2023 9:16 AM EST 05/20/2023 9:21 AM EST Kerline Partida NP LAB BLOOD BKR ORDERABLES Final Result Performing Organization Address [facility] Co de Phone Number [address] [address] * Tissue transglutaminase IgA (05/20/2023 9:16 AM EST) TTG IGA ANTIBODY <1.2 <4.0 (Negative) U/mL [facility] Blood 05/20/2023 9:16 AM EST 05/20/2023 9:20 AM EST Kerline Partida NP LAB BLOOD BKR ORDERABLES Final Result Performing Organization Address City/[facility]/ZIP Co de Phone Number [facility] [address] [place] [address] documented in this encounter Visit Diagnoses Diagnosis Nausea- Primary Nausea alone Rectal bleeding Hemorrhage of rectum and anus documented in this encounter Additional Health Concerns Assessment Noted Time PHQ-9 Depression Total Score: 8 05/09/19 3:14 PM EST PHQ-2 Depression Total Score: 4 05/09/19 3:14 PM EST documented as of this encounter Care Teams International Guest Coordinator Relationship Specialty Start Date End Date Holland Will MD [address] [place] [address] [email or web address] PCP - General Internal Medicine 08/14/22 Maite Mark PA [address] [place] [phone] 02/11/21 documented as of this encounter Additional Source Comments The information contained in this document represents components of the legal health record. It is not the complete legal health record.[facility]
--- OUTSIDE RECORDS SUMMARY | 2025-03-08 18:06 | XMS_ITS | Encounter Summary ---
Author Organization [facility] Address [address] [place] [address] Phone Care Team Providers Care Clammer Name Role Phone Maite Mark Unavailable [phone] Holland Will MD Primary Care Provider [phone] Encounter Details Date Type Department Care Team (Late st Contact Info) Description 12/20/2023 Procedure Pass [facility] Non-Invas[facility] Cardiology [address] [place] [address] Social History Tobacco Use Types Packs/Day Years [...] high school, GED, job training, learning the Belarusian language, technical skills, or developing parenting skills)? [...] housing situation today? I have ghassan wang 05/09/2022 How many times have you [...] 3:50 PM EST Telemedicine [facility] Support [address] [place] [address] Heidy Sol, VANESSA, MSN 2 [employer] [facility] [address] [place] [phone] 06/28/2025 8:30 AM EDT Office Visit [facility] Primary Care Clinic [address] [place] [address] Holland Will MD [address] [place] [phone] 06/28/2025 2:30 PM EDT Office Visit [facility] Gastroenterology Clinic [address] [place] [address] Laura Callahan PA-C [address] [place] [phone] [email or web address] documented as of this encounter Visit Diagnoses Not on filedocumented in this encounter Additional Health Concerns Assessment Noted Time PHQ-9 Depression Total Score: 10 024 4:31 PM EDT PHQ-2 Depression Total Score: 4 12/20/19 24 4:31 PM EDT documented as of this encounter Care Teams Clammer Relationship Specialty Start Date End Date Holland Will MD [address] [place] [phone] PCP - General Internal Medicine 08/14/22 Maite Mark PA [address] [place] [phone] 02/11/21 documented as of this encounter Additional Source Comments The information contained in this document represents components of the legal health record. It is not the complete legal health record.[facility]
--- OUTSIDE RECORDS SUMMARY | 2025-03-08 18:06 | XMS_ITS | Encounter Summary ---
Author Organization [facility] Address [address] [place] [address] Phone Care Team Providers Care High Pressure Operator Name Role Phone Maite Mark Unavailable [phone] Holland Will MD Primary Care Provider [phone] Reason for Visit * Reason Onset Date Comments Medication Prior Authorization 03/03/2025 Z epbound Encounter Details Date Type Department Care Team (Late st Contact Info) Description 03/03/2025 Telephone [facility] Primary Care Clinic 40 [facility] [place] [address] Ximena Ramosuc [address] [place] [address] [email or web address] Medication Prior Authorization (Zepbound) Social History Tobacco Use Types Packs/Day Years [...] high school, GED, job training, learning the Serbian language, technical skills, or developing parenting skills)? [...] PM EST documented as of this encounter Progress Notes * Richie Ramos - 03/03/2025 12:06 PM EST ePA for zepbound submitted 03/03/25 documented in this encounter Plan of Treatment Upcoming Encounters Date Type Department Care Team (Late st Contact Info) Description 03/09/2025 3:50 PM EST Telemedicine [facility] Support [address] [place] [address] Heidy Sol, TECHNICAL RESEARCH SCIENTIST, MSN [address] [phone] 06/28/2025 8:30 AM EDT Office Visit [facility] Primary Care Clinic [address] [place] [address] [phone] Holland Will MD [address] [place] [address] [phone] 06/28/2025 2:30 PM EDT Office Visit [facility] Gastroenterology Clinic [address] [place] [phone] Laura Callahan PA-C [address] [place] [phone] documented as of this encounter Visit Diagnoses Not on filedocumented in this encounter Additional Health Concerns Assessment Noted Time PHQ-9 Depression Total Score: 5 12/22/19 7:59 AM EDT PHQ-2 Depression Total Score: 2 12/22/19 7:59 AM EDT documented as of this encounter Care Teams High Pressure Operator Relationship Specialty Start Date End Date Holland Will MD [address] [place] [address] [phone] PCP - General Internal Medicine 08/14/22 Maite Mark PA [address] [place] [phone] 02/11/21 documented as of this encounter Additional Source Comments The information contained in this document represents components of the legal health record. It is not the complete legal health record.[facility]
== END 2025-03-08 16:21 | disposition home or self-care (01) ==
PROVIDERS: Physician Assistant; Emergency Provider Emergency Medicine Emergency Medical Services; PCP Internal Medicine
DX: K64.4 Residual hemorrhoidal skin tags (principal); K64.8 Other hemorrhoids; K62.89 Other specified diseases of anus and rectum; Z79.899 Other long term (current) drug therapy; Z51.81 Encounter for therapeutic drug level monitoring
CPT/HCPCS: 36415; 80053; 85025; 85610; 85730; 99282; 99283